=== PATIENT | female | born 1935 | race Caucasian/White ===

== ENCOUNTER 2017-03-21 13:10 | Inpatient (IN) | payer OTHER ==
[~2017-03-21] VITALS: Ht 154.9 cm; Wt 45.1 kg
[~2017-03-21 13:10] MED LIST: ASPEC81 PO; CHOLTAB3 PO; FSMD/70 PO; SIMV10TA2 PO
[2017-03-21] MEDS ORDERED: SULF800T23 PO (13:19)
[2017-03-21] MEDS ORDERED: DONE10TA12 PO (13:19)
[2017-03-21] MEDS ORDERED: CEPH500C2 PO (13:19)
[2017-03-21] MEDS ORDERED: ESCI1TAB9 PO (13:19)
[2017-03-21] MEDS ORDERED: SODIUM CHLORIDE 0.9% 1000ML 500 ML IV ONE (13:32)
[2017-03-21] MEDS ORDERED: VANCOMYCIN 1GM/270ML NSS IV STA (13:32)
[2017-03-21] MEDS ORDERED: PIPERACILLIN/TAZOBACTAM 4.5 GM/100ML D5W IV STA (13:32)
[2017-03-21] MEDS ORDERED: LORAZEPAM 2 MG/ML 1 ML VIAL IV STA (13:32)
--- NOTE | 2017-03-21 13:54 | EMERGENCY ROOM VISIT NOTE ---
History Report prepared by Bryan: Titi Johnson Under the Supervision of: Dr. Dov Wilson M.D. First contact with patient: 13:24 Chief Complaint: FEVER Stated Complaint: AMS/CONFUSION History of Present Illness The patient is an 81 year old female who presents to the Emergency Room with complaints of a constant fever and confusion starting this morning. Per the patient's daughter, the patient is finishing Bactrim and the second course of Keflex for a leg infection, and she states that they are currently looking better than usual. She states that she has never had any blood clots in the past. The patient denies any congestion, vomiting, cough, diarrhea, or urinary symptoms. Additionally, the patient has been weak all over. The patient has not taken any medications for her fever this morning. Source of History: patient Onset: this morning Position: other (global) Quality: other (fever) Timing: constant Associated Symptoms: No cough, No vomiting, No diarrhea, No urinary symptoms Review of Systems See HPI for pertinent positives & negatives. A total of 10 systems reviewed and were otherwise negative. Past Medical & Surgical Medical Problems: (1) Cellulitis, leg Family History Cancer Social History Smoking Status: Never Smoker Marital Status: Housing Status: lives alone Occupation Status: retired Current/Historical Medications Scheduled Cephalexin Monohydrate (Keflex), 1 CAP PO TID Donepezil Hydrochloride (Aricept), 10 MG PO DAILY Escitalopram Oxalate (Lexapro), 10 MG PO DAILY Sulfa/Trimethoprim (Bactrim Ds 800MG/160MG), 1 TAB PO BID Allergies Coded Allergies: No Known Allergies (Unverified , 05/23/10) Physical Exam Vital Signs Date Time Temp Pulse Resp B/P (MAP) Pulse Ox O2 Delivery O2 Flow Rate FiO2 03/21/17 16:00 37.5 86 24 97/76 97 Nasal Cannula 2.0 03/21/17 15:30 88 24 97/76 95 Room Air 03/21/17 14:23 117/46 03/21/17 14:20 93 14 03/21/17 14:15 87 33 03/21/17 14:10 91 27 03/21/17 14:05 95 32 03/21/17 14:00 87 27 03/21/17 13:55 88 20 03/21/17 13:53 88 03/21/17 13:53 134/73 03/21/17 13:25 96 Room Air 03/21/17 13:21 37.5 88 20 140/79 97 Room Air Physical Exam GENERAL: Patient is in no acute distress. HEENT: No acute trauma, normocephalic atraumatic, mucous membranes moist, no nasal congestion, no scleral icterus. NECK: No stridor, no adenopathy, no meningismus, trachea is midline. LUNGS: Clear to auscultation bilaterally, no wheeze, no rhonchi, breath sounds equal. HEART: Without murmurs gallops or rubs, regular rate and rhythm. ABDOMEN: Soft, nontender, bowel sounds positive, no hernias, no peritonitis. EXTREMITIES: Right greater than left edema bilaterally, erythema, and some clear drainage to both lower extremities. NEUROLOGIC: Confusion noted. Poor historian. Awake. No focal motor deficits. SKIN: No rash, no jaundice, no diaphoresis. Medical Decision & Procedures ER Provider Diagnostic Interpretation: Radiology results as stated below per my review and radiologist interpretation: ULTRASOUND VENOUS DOPPLER LWR EXT BILA CLINICAL HISTORY: Bilateral leg swelling COMPARISON STUDY: No previous studies for comparison. FINDINGS: Real-time and color flow Doppler imaging were performed. Flow was seen within the femoral, popliteal and calf veins with no intraluminal thrombus demonstrated. The saphenous vein is patent. Note, the study was difficult from a technical standpoint given limited patient cooperation. IMPRESSION: No evidence of lower extremity DVT. Electronically signed by: Buzz Gillette M.D. 03/21/2017 3:14 PM Dictated Date/Time: 03/21/2017 3:[address] HEAD WITHOUT CONTRAST (CT) CLINICAL HISTORY: confusion COMPARISON STUDY: MRI the brain dated 07/13/2010 TECHNIQUE: Axial CT of the brain is performed from the vertex to the skull base. IV contrast was not administered for this examination. A dose lowering technique was utilized adhering to the principles of ALARA. CT DOSE: 537.48 mGy.cm FINDINGS: No intra or extra-axial mass lesions are visualized. There is no CT evidence of acute cortical infarction. There is no evidence of midline shift. There is no acute hemorrhage. No calvarial fractures are visualized. There are patchy white matter hypodensities likely on a small vessel basis. 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 03/21/2017 3:13 PM Dictated Date/Time: 03/21/2017 3:12 PM CHEST ONE VIEW PORTABLE CLINICAL HISTORY: Sepsis COMPARISON STUDY: 05/23/2010 FINDINGS: The heart is borderline enlarged. There is mild interstitial thickening. There is no lobar consolidation. There are no significant pleural effusions.[ IMPRESSION: Mild interstitial thickening a finding which may be accentuated by suboptimal inspiration. No evidence of lobar consolidation Electronically signed by: Buzz Gillette M.D. 03/21/2017 2:08 PM Dictated Date/Time: 03/21/2017 2:07 PM Laboratory Results 03/21/17 13:49 Red Blood Count 4.57, Mean Corpuscular Volume 80.1, Mean Corpuscular Hemoglobin 26.0, Mean Corpuscular Hemoglobin Concent 32.5, Mean Platelet Volume 8.7, Neutrophils (%) (Auto) 90.9, Lymphocytes (%) (Auto) 5.3, Monocytes (%) (Auto) 3.1, Eosinophils (%) (Auto) 0.0, Basophils (%) (Auto) 0.4, Neutrophils # (Auto) 8.55, Lymphocytes # (Auto) 0.50, Monocytes # (Auto) 0.29, Eosinophils # (Auto) 0.00, Basophils # (Auto) 0.04 03/21/17 13:49 Test 03/21/17 13:49 03/21/17 13:55 03/21/17 14:10 White Blood Count 9.41 K/uL (4.8-10.8) Red Blood Count 4.57 M/uL (4.2-5.4) Hemoglobin 11.9 g/dL (12.0-16.0) Hematocrit 36.6 % (37-47) Mean Corpuscular Volume 80.1 fL (80-100) Mean Corpuscular Hemoglobin 26.0 pg (25-34) Mean Corpuscular Hemoglobin Concent 32.5 g/dl (32-36) Platelet Count 373 K/uL (130-400) Mean Platelet Volume 8.7 fL (7.4-10.4) Neutrophils (%) (Auto) 90.9 % Lymphocytes (%) (Auto) 5.3 % Monocytes (%) (Auto) 3.1 % Eosinophils (%) (Auto) 0.0 % Basophils (%) (Auto) 0.4 % Neutrophils # (Auto) 8.55 K/uL (1.4-6.5) Lymphocytes # (Auto) 0.50 K/uL (1.2-3.4) Monocytes # (Auto) 0.29 K/uL (0.11-0.59) Eosinophils # (Auto) 0.00 K/uL (0-0.5) Basophils # (Auto) 0.04 K/uL (0-0.2) RDW Standard Deviation 45.2 fL (36.4-46.3) RDW Coefficient of Variation 15.5 % (11.5-14.5) Immature Granulocyte % (Auto) 0.3 % Immature Granulocyte # (Auto) 0.03 K/uL (0.00-0.02) Prothrombin Time 12.0 SECONDS (9.0-12.0) Prothromb Time International Ratio 1.1 (0.9-1.1) Activated Partial Thromboplast Time 32.7 SECONDS (21.0-31.0) Partial Thromboplastin Ratio 1.3 Anion Gap 10.0 mmol/L (3-11) Est Creatinine Clear Calc Drug Dose 36.3 ml/min Estimated GFR () 74.0 Estimated GFR (Non- 63.8 BUN/Creatinine Ratio 17.6 (10-20) Calcium Level 9.0 mg/dl (8.5-10.1) Magnesium Level 1.7 mg/dl (1.8-2.4) Total Bilirubin 0.5 mg/dl (0.2-1) Aspartate Amino Transf (AST/SGOT) 28 U/L (15-37) Alanine Aminotransferase (ALT/SGPT) 21 U/L (12-78) Alkaline Phosphatase 116 U/L (45-117) Total Protein 7.5 gm/dl (6.4-8.2) Albumin 2.9 gm/dl (3.4-5.0) Globulin 4.6 gm/dl (2.5-4.0) Albumin/Globulin Ratio 0.6 (0.9-2) Thyroid Stimulating Hormone (TSH) 0.404 uIu/ml (0.300-4.500) Bedside Lactic Acid Venous 1.18 mmol/L (0.90-1.70) Urine Color DK YELLOW Urine Appearance CLEAR (CLEAR) Urine pH 6.0 (4.5-7.5) Urine Specific [place] 1.026 (1.000-1.030) Urine Protein NEG (NEG) Urine Glucose (UA) NEG (NEG) Urine Ketones 1+ (NEG) Urine Occult Blood NEG (NEG) Urine Nitrite NEG (NEG) Urine Bilirubin NEG (NEG) Urine Urobilinogen NEG (NEG) Urine Leukocyte Esterase NEG (NEG) Urine WBC (Auto) 0 /hpf (0-5) Urine RBC (Auto) 0-4 /hpf (0-4) Urine Hyaline Casts (Auto) 1-5 /lpf (0-5) Urine Epithelial Cells (Auto) 0-5 /lpf (0-5) Urine Bacteria (Auto) NEG (NEG) Laboratory results reviewed by me. Medications Administered Medications (Trade) Dose Ordered Sig/Ryan Route Start Time Stop Time Status Last Admin Dose Admin Sodium Chloride 500 ml @ 999 mls/hr Q31M ONCE IV 03/21/17 13:32 03/21/17 14:02 DC 03/21/17 13:32 999 MLS/HR Piperacillin Sod/ Tazobactam Sod (Zosyn Iv) 4.5 gm ONE STAT IV 03/21/17 13:32 03/21/17 13:35 DC 03/21/17 14:20 4.5 GM Vancomycin HCl (Vancomycin 1gm/ 270ml Nss) 1 gm ONE STAT IV 03/21/17 13:32 03/21/17 13:35 DC 03/21/17 14:20 1 GM Lorazepam (Ativan Inj) 0.5 mg NOW STAT IV 03/21/17 13:32 03/21/17 13:35 DC 03/21/17 14:20 0.5 MG ECG Indication: other (fever) Rate (beats per minute): 88 Rhythm: normal sinus Findings: nonspecific-ST abn, no acute ischemic change, no ectopy ED Course 1324: The patient was evaluated in room B11. A complete history and physical exam was performed. 1332: Ativan 0.5mg IV, Vancomycin 1gm/ 270ml NSS 1gm IV, Zosyn 4.5gm IV, Sodium Chloride 500 ml @ 999 mls/hr IV 1531: I reevaluated the patient, and she was asleep. I talked to her daughter, and she was agreeable to the treatment plan. 1540: Discussed the patient's case with Dr. Fajardo. The patient will be evaluated for further management. Medical Decision differential diagnoses include: sepsis, bacteremia, failed outpatient treatment , cellulitis, UTI, pneumonia, dehydration, electrolyte imbalance, stroke, medication reaction. There is no leukocytosis or concerning anemia. No significant electrolyte abnormality, kidney failure or hepatitis. Lactic acid level is not elevated making sepsis less likely. The patient appears to be in a euthyroid state. Chest x-ray does not show pneumonia or CHF. Urinalysis does not show infection. Blood cultures are pending. Lower extremity ultrasound does not show any evidence for DVT. Brain CT shows no acute bleed or mass effect. The patient presents with confusion and change in mental status. She developed a fever today despite being on Keflex and Bactrim for cellulitis. Mental status change was also just today. The patient received IV Zosyn and IV vancomycin. She was given IV saline, she received IV Ativan. Given the failed outpatient treatment and worsening of her situation, admission/observation was felt warranted. I spoke to the patient and case management. The on-call hospitalist was consulted. Medication Reconcilliation Current Medication List: was personally reviewed by me Blood Pressure Screening Patient's blood pressure: Elevated blood pressure Blood pressure disposition: Elevated BP felt to be situational Consults Time Called: 1530 Consulting Physician: Dr. Fajardo Returned Call: 1540 Discussed the patient's case with Dr. Fajardo. The patient will be evaluated for further management. Impression Primary Impression: Failure of outpatient treatment Additional Impressions: Change in mental status Cellulitis Scribe Attestation The scribe's documentation has been prepared under my direction and personally reviewed by me in its entirety. I confirm that the note above accurately reflects all work, treatment, procedures, and medical decision making performed by me. Departure Information Dispostion Being Evaluated By Hospitalist Referrals No Doctor, Assigned (PCP) Patient Instructions My [facility] Problem Qualifiers
[2017-03-21 14:05] LABS: BASO % 0.4 %; BASO ABS # 0.04 K/uL (0-0.2); COMPLETE YES; HEMATOCRIT 36.6 % (37-47); IG% 0.3 %; LYMPH % 5.3 %; MEAN CELL VOLUME 80.1 fL (80-100); MEAN CORPUSCULAR HGB CONC 32.5 g/dl (32-36); MEAN PLATELET VOLUME 8.7 fL (7.4-10.4); MONO % 3.1 %; NEUT % 90.9 %; PLATELET COUNT 373 K/uL (130-400); RED BLOOD COUNT 4.57 M/uL (4.2-5.4); WHITE BLOOD COUNT 9.41 K/uL (4.8-10.8)
--- NOTE | 2017-03-21 14:09 | DIAGNOSTIC IMAGING REPORT ---
CHEST ONE VIEW PORTABLE CLINICAL HISTORY: Sepsis COMPARISON STUDY: 05/23/2010 FINDINGS: The heart is borderline enlarged. There is mild interstitial thickening. There is no lobar consolidation. There are no significant pleural effusions.[ IMPRESSION: Mild interstitial thickening a finding which may be accentuated by suboptimal inspiration. No evidence of lobar consolidation Electronically signed by: Buzz Gillette M.D. 03/21/2017 2:08 PM Dictated Date/Time: 03/21/2017 2:07 PM
[2017-03-21 14:16] LABS: INR 1.1 (0.9-1.1); PARTIAL THROMBOPLASTIN RATIO 1.3
[2017-03-21 14:24] LABS: BUN/CREATININE RATIO 17.6 (10-20); CREATININE 0.85 mg/dl (0.60-1.20); MAGNESIUM 1.7 mg/dl (1.8-2.4)
[2017-03-21 14:34] LABS: URINE APPEARANCE CLEAR (CLEAR); URINE BILIRUBIN NEG (NEG); URINE COLOR DK YELLOW; URINE EPITHELIAL CELL AUTO 0-5 /lpf (0-5); URINE NITRITE NEG (NEG); URINE SPECIFIC GRAVITY 1.026 (1.000-1.030); UROBILINOGEN NEG (NEG); ZZURINE CULT IF INDIC CATH NO
[2017-03-21 14:34] LABS: ALB/GLOB RATIO 0.6 (0.9-2); THYROID STIMULATING HORMONE 0.404 uIu/ml (0.300-4.500)
[2017-03-21 14:36] LABS: MANUAL MICROSCOPIC REQUIRED? NO; REVIEW REQ? NO
--- NOTE | 2017-03-21 15:14 | DIAGNOSTIC IMAGING REPORT ---
CT HEAD WITHOUT CONTRAST (CT) CLINICAL HISTORY: confusion COMPARISON STUDY: MRI the brain dated 07/13/2010 TECHNIQUE: Axial CT of the brain is performed from the vertex to the skull base. IV contrast was not administered for this examination. A dose lowering technique was utilized adhering to the principles of ALARA. CT DOSE: 537.48 mGy.cm FINDINGS: No intra or extra-axial mass lesions are visualized. There is no CT evidence of acute cortical infarction. There is no evidence of midline shift. There is no acute hemorrhage. No calvarial fractures are visualized. There are patchy white matter hypodensities likely on a small vessel basis. 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 03/21/2017 3:13 PM Dictated Date/Time: 03/21/2017 3:12 PM
--- NOTE | 2017-03-21 15:15 | DIAGNOSTIC IMAGING REPORT ---
ULTRASOUND VENOUS DOPPLER LWR EXT BILA CLINICAL HISTORY: Bilateral leg swelling COMPARISON STUDY: No previous studies for comparison. FINDINGS: Real-time and color flow Doppler imaging were performed. Flow was seen within the femoral, popliteal and calf veins with no intraluminal thrombus demonstrated. The saphenous vein is patent. Note, the study was difficult from a technical standpoint given limited patient cooperation. IMPRESSION: No evidence of lower extremity DVT. Electronically signed by: Buzz Gillette M.D. 03/21/2017 3:14 PM Dictated Date/Time: 03/21/2017 3:13 PM
[2017-03-21 16:00] VITALS: BP 97/76; PULSE 86; TEMP 37.5; O2SAT 97; Ht 154.9 cm; Wt 45.1 kg
[2017-03-21] MEDS ORDERED: ACETAMINOPHEN 325 MG TAB PO PRN (16:30)
[2017-03-21] MEDS ORDERED: MAGNESIUM HYDROXIDE SUSP 30 ML UDC PO PRN (16:30)
[2017-03-21] MEDS ORDERED: ONDANSETRON INJ 2 MG/ML 2 ML VIAL IV PRN (16:30)
[2017-03-21] MEDS ORDERED: POLYETHYLENE (MIRALAX) 17 GM PACK PO PRN (16:30)
[2017-03-21] MEDS ORDERED: ALUMINUM/MAGNESIUM/SIMETH (MAALOX MAX) 30 ML UDC PO PRN (16:30)
--- NOTE | 2017-03-21 16:46 | History and Physical ---
History & Physical Date & Time of Service: Mar 21, 2017 at 16:24 Chief Complaint: Ams/Confusion Primary Care Physician: Neftali Hammond M.D. History of Present Illness Source: family (Daughter - Melissa) Ms. Bradley is an 81 y/o female with PMHx of Senile Dementia of Alzheimer's Type and Anxiety who presents to the ED due to fever and AMS starting this AM. History obtained from the daughter as patient is currently asleep after receiving Ativan. Patient is presented to PCP on 03/09 for bilateral lower extremity edema and erythema and was placed on Keflex. On follow-up on 03/15, she was started on Bactrim and another course of Keflex initiated. Daughter reports she is a couple days shy of completing this course. Daughter feels that her lower extremities are improving. She has open wounds on both feet that are healing. Her right lower extremity is more edematous compared to the left. Daughter states that the patient was feeling well prior to this morning. Daughter noted a fever of 100F and increased confusion from her baseline. Baseline mentation has underlying dementia and agitation. Daughter states patient is ambulatory and able to converse. Noted generalized weakness impacting her baseline ambulation. Daughter denies focal neurological deficits or slurred speech. Of note, daughter states on 03/15 patient's Lexapro was increased from 5 mg to 10 mg but reports she tolerated this increase well. In the ED, she is afebrile and without leukocytosis. Lactic acid 1.18. Hyponatremic at 130. Head CT negative for acute findings. CXR without lobar consolidation. UA is unremarkable. Bilateral Dopplers without evidence of DVT. Patient was initially mildly hypertensive but currently hypotensive. She will be admitted to telemetry for further evaluation and care. Family History Cancer Diabetes mellitus Social History Smoking Status: Never Smoker Smokeless Tobacco Use: No Alcohol Use: none Drug Use: none Marital Status: Housing status: lives alone Occupational Status: retired Immunizations History of Influenza Vaccine: Yes Influenza Vaccine Date: Apr 23, 2010 History of Tetanus Vaccine?: Unknown History of Pneumococcal: Yes Pneumococcal Date: Apr 23, 2010 History of Hepatitis B Vaccine: No Multi-Drug Resistant Organisms History of MDRO: No Allergies Coded Allergies: No Known Allergies (Unverified , 05/23/10) Home Medications Scheduled Cephalexin Monohydrate (Keflex), 1 CAP PO TID Donepezil Hydrochloride (Aricept), 10 MG PO DAILY Escitalopram Oxalate (Lexapro), 10 MG PO DAILY Sulfa/Trimethoprim (Bactrim Ds 800MG/160MG), 1 TAB PO BID Review of Systems Unable to obtain ROS due to sedation from Ativan. Physical Exam Vital Signs Date Time Temp Pulse Resp B/P (MAP) Pulse Ox O2 Delivery O2 Flow Rate FiO2 03/21/17 16:00 37.5 86 24 97/76 97 Nasal Cannula 2.0 03/21/17 15:30 88 24 97/76 95 Room Air 03/21/17 14:23 117/46 03/21/17 14:20 93 14 03/21/17 14:15 87 33 03/21/17 14:10 91 27 03/21/17 14:05 95 32 03/21/17 14:00 87 27 03/21/17 13:55 88 20 03/21/17 13:53 88 03/21/17 13:53 134/73 03/21/17 13:25 96 Room Air 03/21/17 13:21 37.5 88 20 140/79 97 Room Air General Appearance: WD/WN, no apparent distress (sleeping/snoring), + thin, + pertinent finding (shivering) Head: normocephalic, atraumatic Neck: supple, no JVD, trachea midline Respiratory/Chest: lungs clear, normal breath sounds, no respiratory distress, no accessory muscle use Cardiovascular: regular rate, rhythm, no gallop, no murmur Abdomen/GI: normal bowel sounds, non tender, soft Extremities/Musculoskelatal: + pertinent finding (healing superficial open wounds of bilateral dorsum of feet; bilateral legs with minimal erythema; RLE 2 + pitting edema and LLE 1+ pitting edema; RLE warm to touch; capillary refill adequate with mild delay) Neurologic/Psych: + pertinent finding (asleep) Diagnostics Laboratory Results Results Past 24 Hours Test 03/21/17 13:49 03/21/17 13:55 03/21/17 14:10 Range/Units White Blood Count 9.41 4.8-10.8 K/uL Red Blood Count 4.57 4.2-5.4 M/uL Hemoglobin 11.9 12.0-16.0 g/dL Hematocrit 36.6 37-47 % Mean Corpuscular Volume 80.1 80-100 fL Mean Corpuscular Hemoglobin 26.0 25-34 pg Mean Corpuscular Hemoglobin Concent 32.5 32-36 g/dl Platelet Count 373 130-400 K/uL Mean Platelet Volume 8.7 7.4-10.4 fL Neutrophils (%) (Auto) 90.9 % Lymphocytes (%) (Auto) 5.3 % Monocytes (%) (Auto) 3.1 % Eosinophils (%) (Auto) 0.0 % Basophils (%) (Auto) 0.4 % Neutrophils # (Auto) 8.55 1.4-6.5 K/uL Lymphocytes # (Auto) 0.50 1.2-3.4 K/uL Monocytes # (Auto) 0.29 0.11-0.59 K/uL Eosinophils # (Auto) 0.00 0-0.5 K/uL Basophils # (Auto) 0.04 0-0.2 K/uL RDW Standard Deviation 45.2 36.4-46.3 fL RDW Coefficient of Variation 15.5 11.5-14.5 % Immature Granulocyte % (Auto) 0.3 % Immature Granulocyte # (Auto) 0.03 0.00-0.02 K/uL Prothrombin Time 12.0 9.0-12.0 SECONDS Prothromb Time International Ratio 1.1 0.9-1.1 Activated Partial Thromboplast Time 32.7 21.0-31.0 SECONDS Partial Thromboplastin Ratio 1.3 Sodium Level 130 136-145 mmol/L Potassium Level 4.0 3.5-5.1 mmol/L Chloride Level 95 98-107 mmol/L Carbon Dioxide Level 25 21-32 mmol/L Anion Gap 10.0 3-11 mmol/L Blood Urea Nitrogen 15 7-18 mg/dl Creatinine 0.85 0.60-1.20 mg/dl Est Creatinine Clear Calc Drug Dose 36.3 ml/min Estimated GFR () 74.0 Estimated GFR (Non- 63.8 BUN/Creatinine Ratio 17.6 10-20 Random Glucose 95 70-99 mg/dl Calcium Level 9.0 8.5-10.1 mg/dl Magnesium Level 1.7 1.8-2.4 mg/dl Total Bilirubin 0.5 0.2-1 mg/dl Aspartate Amino Transf (AST/SGOT) 28 15-37 U/L Alanine Aminotransferase (ALT/SGPT) 21 12-78 U/L Alkaline Phosphatase 116 45-117 U/L Total Protein 7.5 6.4-8.2 gm/dl Albumin 2.9 3.4-5.0 gm/dl Globulin 4.6 2.5-4.0 gm/dl Albumin/Globulin Ratio 0.6 0.9-2 Thyroid Stimulating Hormone (TSH) 0.404 0.300-4.500 uIu/ml Bedside Lactic Acid Venous 1.18 0.90-1.70 mmol/L Urine Color DK YELLOW Urine Appearance CLEAR CLEAR Urine pH 6.0 4.5-7.5 Urine Specific [place] 1.026 1.000-1.030 Urine Protein NEG NEG Urine Glucose (UA) NEG NEG Urine Ketones 1+ NEG Urine Occult Blood NEG NEG Urine Nitrite NEG NEG Urine Bilirubin NEG NEG Urine Urobilinogen NEG NEG Urine Leukocyte Esterase NEG NEG Urine WBC (Auto) 0 0-5 /hpf Urine RBC (Auto) 0-4 0-4 /hpf Urine Hyaline Casts (Auto) 1-5 0-5 /lpf Urine Epithelial Cells (Auto) 0-5 0-5 /lpf Urine Bacteria (Auto) NEG NEG Microbiology Results 03/21/17 Blood Culture, Received Pending 03/21/17 Blood Culture, Received Pending Diagnostic Radiology ULTRASOUND VENOUS DOPPLER LWR EXT BILA FINDINGS: Real-time and color flow Doppler imaging were performed. Flow was seen within the femoral, popliteal and calf veins with no intraluminal thrombus demonstrated. The saphenous vein is patent. Note, the study was difficult from a technical standpoint given limited patient cooperation. IMPRESSION: No evidence of lower extremity DVT. CT HEAD WITHOUT CONTRAST (CT) FINDINGS: No intra or extra-axial mass lesions are visualized. There is no CT evidence of acute cortical infarction. There is no evidence of midline shift. There is no acute hemorrhage. No calvarial fractures are visualized. There are patchy white matter hypodensities likely on a small vessel basis. 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 There is mild interstitial thickening. There is no lobar consolidation. There are no significant pleural effusions.[ IMPRESSION: Mild interstitial thickening a finding which may be accentuated by suboptimal inspiration. No evidence of lobar consolidation EKG Poor data quality, interpretation may be adversely affected Normal sinus rhythm Normal ECG When compared with ECG of 23-MAY-2010 11:54, ST now depressed in Anterior leads Impression Assessment and Plan Ms. Bradley is an 81 y/o female with PMHx of Senile Dementia of Alzheimer's Type and Anxiety who presents to the ED due to fever and AMS starting this AM. Placed on Keflex x 2 courses and Bactrim x 1 course for bilateral lower extremity cellulitis. Bilateral Lower Extremity Cellulitis: - On antibiotics since 03/09 with noted improvement but not at baseline with noted increased confusion from baseline - R worse than L - Zosyn 3.375 mg IV Q8H and Vancomycin - NSS at 80 mL/hr Hyponatremia: - Continue gentle hydration with NSS at 80 mL/hr - may need to bolus 500 cc if necessary for hypotension - Monitor BMP SDAT: - Donepezil 10 mg daily and Lexapro 10 mg daily (increased on 03/15 from 5 mg) - Will avoid further Ativan at this time - however can do low dose if patient becomes extremely agitated DVT Prophylaxis: Heparin 5000 units SC BID Code Status: DO NOT RESUSCITATE - Daughter states this was discussed by patient to her and son in the past but denies living will or documentation -- Daughter and son are POA Disposition: - Telemetry due to hypotension - if stable overnight can transfer to Med/Surg - Lives alone with caregivers and daughter and son visits - is ambulatory without assistive devices Attending Addendum: I have physically seen and examined this patient, have directed the physician assistants medical activities, and agree with the H&P as noted above with the following exceptions as noted. The patient presents to the emergency department with complaint of fever and altered mental status more significant than her SDAT that began the a.m. prior to arrival. The patient is normocephalic and atraumatic, appears thin , lying in bed , resting comfortably, and in no acute distress. HEENT--PERRL, EOMI, mucous membranes and oropharynx dry. Neck--supple, no JVD or bruits, thyroid normal, trachea midline, no adenopathy. Heart--normal S1 and S2, no extra beats, no murmurs, rubs or gallops. Lungs--clear bilaterally with good air movement, no respiratory distress, no accessory muscle use. Abdomen--normal bowel sounds and soft, nontender and nondistended, no hernias or masses, no organomegaly. Extremities/dermatologic--right lower extremity with 2+ pitting edema, left lower extremity 1+ pitting edema, both warm to touch right worse than left. There are a number of healing superficial open wounds of the dorsum of the feet bilaterally. Neurologic--cranial nerves II through XII grossly intact, motor and sensory examination normal. Rheumatologic--moves all extremities Psychiatric--asleep. Assessment and Plan: 1. Bilateral lower extremity cellulitis-- Placed on vancomycin IV and Zosyn 3.375 mg IV every 8 hours. Normal saline at 80 ML's per hour. 2. Hyponatremia--add serum and urine osmolality. Normal saline at 80 ML's per hour, and bolus if low blood pressure. Serial BMP and magnesium levels. 3. SDAT--continue omeprazole and Lexapro as per outpatient. Level of Care Telemetry Advanced Directives Existing Advance Directive: Yes Existing Living Will: Yes Existing Power of Housekeeping Assistant: Yes Resuscitation Status DO NOT RESUSCITATE VTE Prophylaxis VTE Risk Assessment Done? Y/N: Yes Risk Level: Moderate Given or contraindicated: Unfractionated heparin SQ, SCD's Social Service Consult >80 yr.& Lives Alone
[2017-03-21] MEDS: SODIUM CHLORIDE 0.9% 1000ML 1,000 ML IV SCH (19:59)
[2017-03-21 20:20] VITALS: O2SAT 94
[2017-03-21] MEDS ORDERED: PIPERACILL/TAZOBAC CONSULT ACTIVE PRN (20:45)
[2017-03-21] MEDS ORDERED: VANCOMYCIN CONSULT ACTIVE PRN (20:45)
[2017-03-21 21:08] VITALS: BP 135/71; PULSE 87; TEMP 39; O2SAT 93
[2017-03-21] MEDS: PIPERACILL/TAZOBAC IV 3.375 GM in DEXTROSE 5% 100ML 100 ML IV SCH (21:12)
[2017-03-21] MEDS: HEPARIN SOD 5000 UNIT/0.5 ML CARP SQ SCH (22:21)
[2017-03-21 23:05] VITALS: BP 121/67; PULSE 97; TEMP 37.9; O2SAT 93
[2017-03-22] VITALS (10 sets, daily range): BP systolic 110–128; BP diastolic 60–74; PULSE 56–103; TEMP 36.4–38.2; O2SAT 94–100
[2017-03-22] MEDS: SODIUM CHLORIDE 0.9% 1000ML 1,000 ML IV SCH ×2 (04:31→17:45)
[2017-03-22] MEDS: PIPERACILL/TAZOBAC IV 3.375 GM in DEXTROSE 5% 100ML 100 ML IV SCH ×3 (04:31→20:47)
[2017-03-22 05:53] LABS: HEMATOCRIT 34.1 % (37-47); MEAN CELL VOLUME 79.9 fL (80-100); MEAN CORPUSCULAR HEMOGLOBIN 25.1 pg (25-34); MEAN CORPUSCULAR HGB CONC 31.4 g/dl (32-36); MEAN PLATELET VOLUME 8.9 fL (7.4-10.4); PLATELET COUNT 297 K/uL (130-400); RED BLOOD COUNT 4.27 M/uL (4.2-5.4)
[2017-03-22 06:30] LABS: BUN/CREATININE RATIO 22.2 (10-20); CALCIUM 7.9 mg/dl (8.5-10.1); CREATININE 0.81 mg/dl (0.60-1.20); POTASSIUM 3.4 mmol/L (3.5-5.1)
--- NOTE | 2017-03-22 08:46 | Pharmacy Progress Note ---
Pharmacy Abx Initial Consult Date of Service Mar 22, 2017. Pharmacy Dosing Scope Date of Consult: 03/21/17 Pharmacy is consulted to initiate Vancomycin/Zosyn IV dosing therapy, order appropriate labs and adjust drug dose/frequency. Subjective The patient is a 81 year old female admitted on Mar 21, 2017 at 16:22 for the treatment of B/L leg cellulitis. Objective Height (Feet): 5 Height (Inches): 1.00 Weight (Kilograms): 45.100 Vital Signs (Past 12Hrs) Vital Signs Past 12 Hours Date Time Temp Pulse Resp B/P (MAP) Pulse Ox O2 Delivery O2 Flow Rate FiO2 03/22/17 07:25 37.7 103 20 128/63 (84) 94 Room Air 03/22/17 07:01 37.7 03/22/17 04:05 Room Air 03/22/17 02:55 38.2 91 18 122/71 (88) 94 Room Air 03/22/17 00:05 Room Air 03/21/17 23:05 37.9 97 24 121/67 (85) 93 Room Air 03/21/17 21:08 39.0 87 18 135/71 (92) 93 Room Air Lab Results (24Hrs) Laboratory Tests (24 Hours) Test 03/21/17 13:49 03/22/17 05:17 White Blood Count 9.41 K/uL (4.8-10.8) 7.50 K/uL (4.8-10.8) Red Blood Count 4.57 M/uL (4.2-5.4) Hemoglobin 11.9 g/dL (12.0-16.0) L Hematocrit 36.6 % (37-47) L Mean Corpuscular Volume 80.1 fL (80-100) Mean Corpuscular Hemoglobin 26.0 pg (25-34) Mean Corpuscular Hemoglobin Concent 32.5 g/dl (32-36) Platelet Count 373 K/uL (130-400) Mean Platelet Volume 8.7 fL (7.4-10.4) Neutrophils (%) (Auto) 90.9 % Lymphocytes (%) (Auto) 5.3 % Monocytes (%) (Auto) 3.1 % Eosinophils (%) (Auto) 0.0 % Basophils (%) (Auto) 0.4 % Neutrophils # (Auto) 8.55 K/uL (1.4-6.5) H Lymphocytes # (Auto) 0.50 K/uL (1.2-3.4) L Monocytes # (Auto) 0.29 K/uL (0.11-0.59) Eosinophils # (Auto) 0.00 K/uL (0-0.5) Basophils # (Auto) 0.04 K/uL (0-0.2) Micro Results Date/Time Source Procedure Growth Status 03/21/17 13:49 Blood Blood Culture Pending Received 03/21/17 13:41 Blood Blood Culture Pending Received Risk Factors for Resistance * Antimicrobial use within the last 90 days: Keflex PO + Bactrim PO Assessment & Plan Assessment 81 year old female admitted yesterday for treatment of B/L leg cellulitis, initiated on Vancomycin/Zosyn IV. Pt recently failed two treatment courses of PO Keflex and one course of Bactrim PO. Blood cultures pending. Plan Vancomycin IV * Loading dose: 1000 mg (22 mg/kg) * Maintenance dose: 750 mg IV (16.5 mg/kg) every 24 hours * Goal trough level for cellulitis: ~15 mcg/mL * Trough level ordered for 03/24/17 @0930 prior to the 1000 dose. Piperacillin/tazobactam * 4.5 g bolus administered over 30 minutes, then 3.375 g IV extended infusion every 8 hours for CrCl greater than 20 mL/min Pharmacy will continue to follow and will adjust dose/frequency as necessary. Thank you.
[2017-03-22] MEDS: DONEPEZIL HCL 10 MG TAB PO SCH (09:00)
[2017-03-22] MEDS: ESCITALOPRAM OXALATE 10 MG TAB PO SCH (09:00)
[2017-03-22] MEDS: HEPARIN SOD 5000 UNIT/0.5 ML CARP SQ SCH ×2 (09:00→20:50)
[2017-03-22] MEDS: VANCOMYCIN INJ 750 MG in SODIUM CHLORIDE 0.9% 250ML 250 ML IV SCH (09:49)
--- NOTE | 2017-03-22 20:57 | Progress Note ---
Subjective Date of Service: Mar 22, 2017. Subjective Pt evaluation today including: conversation w/ patient, conversation w/ family , physical exam, chart review, lab review, review of studies Problem List Medical Problems: (1) Cellulitis Status: Acute (2) Change in mental status Status: Acute (3) Failure of outpatient treatment Status: Acute Review of Systems ROS is unobtainable as patient is lethargic Objective Vital Signs Date Time Temp Pulse Resp B/P (MAP) Pulse Ox O2 Delivery O2 Flow Rate FiO2 03/22/17 20:04 36.4 56 16 125/74 (91) 100 Room Air 03/22/17 16:00 96 Room Air 03/22/17 15:13 36.7 93 18 121/68 (85) 94 Room Air 03/22/17 12:00 95 Room Air 3.0 03/22/17 11:31 37.9 94 18 110/60 (77) 95 Room Air 03/22/17 08:00 94 Room Air 3.0 03/22/17 07:25 37.7 103 20 128/63 (84) 94 Room Air 03/22/17 07:01 37.7 03/22/17 04:05 Room Air 03/22/17 02:55 38.2 91 18 122/71 (88) 94 Room Air 03/22/17 00:05 Room Air 03/21/17 23:05 37.9 97 24 121/67 (85) 93 Room Air 03/21/17 21:08 39.0 87 18 135/71 (92) 93 Room Air Physical Exam General Appearance: WD/WN, no apparent distress Eyes: normal inspection, EOMI ENT: normal ENT inspection Neck: supple Respiratory/Chest: chest non-tender, lungs clear, normal breath sounds, no respiratory distress, no accessory muscle use Cardiovascular: regular rate, rhythm, no edema, no gallop, no JVD, no murmur Abdomen: normal bowel sounds, non tender, soft, no organomegaly Extremities: normal range of motion, non-tender, normal inspection, no pedal edema, no calf tenderness Neurologic/Psychiatric: + pertinent finding (patient lethargic but was able to follow simple command despite being partially combative. Discussed with patient 's son) Skin: normal color, warm/dry, no rash Laboratory Results Last 24 Hours Test 03/22/17 05:17 White Blood Count 7.50 K/uL Red Blood Count 4.27 M/uL Hemoglobin 10.7 g/dL Hematocrit 34.1 % Mean Corpuscular Volume 79.9 fL Mean Corpuscular Hemoglobin 25.1 pg Mean Corpuscular Hemoglobin Concent 31.4 g/dl RDW Standard Deviation 45.8 fL RDW Coefficient of Variation 15.7 % Platelet Count 297 K/uL Mean Platelet Volume 8.9 fL Sodium Level 132 mmol/L Potassium Level 3.4 mmol/L Chloride Level 100 mmol/L Carbon Dioxide Level 24 mmol/L Anion Gap 8.0 mmol/L Blood Urea Nitrogen 18 mg/dl Creatinine 0.81 mg/dl Est Creatinine Clear Calc Drug Dose 38.1 ml/min Estimated GFR () 78.4 Estimated GFR (Non- 67.6 BUN/Creatinine Ratio 22.2 Random Glucose 95 mg/dl Calcium Level 7.9 mg/dl Assessment and Plan 81-year-old female with past medical history of advanced Alzheimer and an anxiety presented to the ED with change in mental status and found to have cellulitis in her lower extremities. Metabolic encephalopathy Bilateral lower extremity cellulitis Hyponatremia Possible tinea pedis Borderline low blood pressure Hyponatremia likely nutritional Dehydration due to decreased oral intake Advanced dementia Plan continue Zosyn/Vanco Continue IV fluid hydration Continue home meds as appropriate Heparin for DVT prophylaxis We'll add Lactinex for C. difficile prophylaxis We'll add ketoconazole for treatment of tinea pedis
[2017-03-23] VITALS (9 sets, daily range): BP systolic 112–145; BP diastolic 62–79; PULSE 67–90; TEMP 36–37.1; O2SAT 90–92
[2017-03-23] MEDS: PIPERACILL/TAZOBAC IV 3.375 GM in DEXTROSE 5% 100ML 100 ML IV SCH (05:30)
[2017-03-23] MEDS: SODIUM CHLORIDE 0.9% 1000ML 1,000 ML IV SCH ×2 (05:30→18:08)
[2017-03-23 06:36] LABS: BASO % 0.5 %; BASO ABS # 0.04 K/uL (0-0.2); COMPLETE YES; EOS % 1.2 %; IG% 0.3 %; LYMPH % 15.5 %; LYMPH ABS # 1.15 K/uL (1.2-3.4); MEAN CELL VOLUME 78.8 fL (80-100); MEAN CORPUSCULAR HEMOGLOBIN 25.6 pg (25-34); MEAN CORPUSCULAR HGB CONC 32.5 g/dl (32-36); MEAN PLATELET VOLUME 8.8 fL (7.4-10.4); MONO % 7.4 %; NEUT % 75.1 %; PLATELET COUNT 230 K/uL (130-400); RED BLOOD COUNT 4.06 M/uL (4.2-5.4); WHITE BLOOD COUNT 7.43 K/uL (4.8-10.8)
[2017-03-23 07:14] LABS: ALB/GLOB RATIO 0.6 (0.9-2); BUN/CREATININE RATIO 23.9 (10-20); CALCIUM 7.4 mg/dl (8.5-10.1); CREATININE 0.61 mg/dl (0.60-1.20); MAGNESIUM 1.8 mg/dl (1.8-2.4); PHOSPHORUS 1.6 mg/dl (2.5-4.9); POTASSIUM 3.1 mmol/L (3.5-5.1)
[2017-03-23] MEDS: ESCITALOPRAM OXALATE 10 MG TAB PO SCH (08:51)
[2017-03-23] MEDS: DONEPEZIL HCL 10 MG TAB PO SCH (08:51)
[2017-03-23] MEDS: HEPARIN SOD 5000 UNIT/0.5 ML CARP SQ SCH ×2 (08:52→19:40)
[2017-03-23] MEDS: VANCOMYCIN INJ 750 MG in SODIUM CHLORIDE 0.9% 250ML 250 ML IV SCH (11:00)
[2017-03-23] MEDS ORDERED: NURSING DECISION MEDICATION ORDER SCH (11:15)
--- NOTE | 2017-03-23 12:37 | Progress Note ---
Subjective Date of Service: Mar 23, 2017. Subjective Pt evaluation today including: conversation w/ patient, physical exam, chart review, lab review, review of inpatient medication list Problem List Medical Problems: (1) Cellulitis Status: Acute (2) Change in mental status Status: Acute (3) Failure of outpatient treatment Status: Acute Review of Systems Review of systems is unobtainable in details but she is much more awake now and was able to deny any complaint or any pain Was not able to review all her system details as she is still slightly lethargic. Objective Vital Signs Date Time Temp Pulse Resp B/P (MAP) Pulse Ox O2 Delivery O2 Flow Rate FiO2 03/23/17 11:38 36.0 79 18 124/72 (89) 92 Room Air 03/23/17 08:00 90 Room Air 2.0 03/23/17 07:36 37.1 85 20 119/70 (86) 90 Nasal Cannula 2.0 03/23/17 05:43 36.7 89 18 119/72 (88) 91 2.0 03/23/17 04:00 Nasal Cannula 2.0 03/23/17 01:25 36.6 90 18 139/62 (87) 90 2.0 03/23/17 00:00 Nasal Cannula 2.0 03/22/17 20:04 36.4 56 16 125/74 (91) 100 Room Air 03/22/17 20:00 96 Room Air 03/22/17 16:00 96 Room Air 03/22/17 15:13 36.7 93 18 121/68 (85) 94 Room Air Physical Exam General Appearance: WD/WN, no apparent distress Eyes: normal inspection, EOMI ENT: normal ENT inspection, hearing grossly normal Neck: supple Respiratory/Chest: chest non-tender, lungs clear, normal breath sounds, no respiratory distress, no accessory muscle use Cardiovascular: regular rate, rhythm, no edema, no gallop, no JVD, no murmur Abdomen: normal bowel sounds, non tender, soft, no organomegaly Extremities: normal range of motion, non-tender, normal inspection, no pedal edema 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, no motor/sensory deficits, + pertinent finding (slightly lethargic but much more awake than yesterday and able to follow simple commands) Skin: normal color, warm/dry, + rash, + pertinent finding (significant cellulitis in both lower extremities) Laboratory Results Last 24 Hours Test 03/23/17 06:16 White Blood Count 7.43 K/uL Red Blood Count 4.06 M/uL Hemoglobin 10.4 g/dL Hematocrit 32.0 % Mean Corpuscular Volume 78.8 fL Mean Corpuscular Hemoglobin 25.6 pg Mean Corpuscular Hemoglobin Concent 32.5 g/dl Platelet Count 230 K/uL Mean Platelet Volume 8.8 fL Neutrophils (%) (Auto) 75.1 % Lymphocytes (%) (Auto) 15.5 % Monocytes (%) (Auto) 7.4 % Eosinophils (%) (Auto) 1.2 % Basophils (%) (Auto) 0.5 % Neutrophils # (Auto) 5.58 K/uL Lymphocytes # (Auto) 1.15 K/uL Monocytes # (Auto) 0.55 K/uL Eosinophils # (Auto) 0.09 K/uL Basophils # (Auto) 0.04 K/uL RDW Standard Deviation 45.1 fL RDW Coefficient of Variation 15.6 % Immature Granulocyte % (Auto) 0.3 % Immature Granulocyte # (Auto) 0.02 K/uL Sodium Level 135 mmol/L Potassium Level 3.1 mmol/L Chloride Level 103 mmol/L Carbon Dioxide Level 25 mmol/L Anion Gap 7.0 mmol/L Blood Urea Nitrogen 15 mg/dl Creatinine 0.61 mg/dl Est Creatinine Clear Calc Drug Dose 50.6 ml/min Estimated GFR () 97.8 Estimated GFR (Non- 84.4 BUN/Creatinine Ratio 23.9 Random Glucose 96 mg/dl Calcium Level 7.4 mg/dl Phosphorus Level 1.6 mg/dl Magnesium Level 1.8 mg/dl Total Bilirubin 0.5 mg/dl Aspartate Amino Transf (AST/SGOT) 63 U/L Alanine Aminotransferase (ALT/SGPT) 26 U/L Alkaline Phosphatase 76 U/L Total Protein 5.2 gm/dl Albumin 1.9 gm/dl Globulin 3.3 gm/dl Albumin/Globulin Ratio 0.6 Assessment and Plan 81-year-old female with past medical history of advanced Alzheimer and an anxiety presented to the ED with change in mental status and found to have cellulitis in her lower extremities. Metabolic encephalopathy, improved Bilateral lower extremity cellulitis Hyponatremia Possible tinea pedis Borderline low blood pressure Hyponatremia likely nutritional Dehydration due to decreased oral intake Advanced dementia Plan CT scan head is negative and mental status is significantly improved continue Vanco, ordered nasal swab for MRSA DC Zosyn Started on ceftriaxone 2 g IV daily, Streptococcus dose Continue Lactinex Continue ketoconazole for tinea pedis between toes Continue IV fluid hydration Continue home meds as appropriate Heparin for DVT prophylaxis
--- NOTE | 2017-03-23 12:41 | Clinical Documentation Query ---
CLINICAL DOCUMENTATION QUERY 81 y/o female with PMHx of Senile Dementia of Alzheimer's Type and Anxiety who presents to the ED due to fever and AMS starting this AM. Placed on Keflex x 2 courses and Bactrim x 1 course for bilateral lower extremity cellulitis. In your clinical opinion is this patient being managed for: ( x ) Pressure ulcer of left heel, stage 2, POA ( x ) Pressure ulcer of right buttock, unstageable, POA ( ) Not Agree ( ) Other explanation of clinical findings (Please Explain) ( ) Unable to determine (Please Define) ( ) Need to Discuss The medical record reflects the following clinical findings, treatment, and risk factors. Clinical Indicators: Patient seen by WOCN revealed in Intervention: Right medial buttocks, POA, Pressure Ulcer Deep Tissue Injuryj Left heel, POA, Pressure Ulcer, Deep Tissue Injury Left heel, Dark Fluid Filled Blister Treatment:Waffle boots, EHOB air mattress, wound consult Risk Factors:Age, immobility, dementia Stage 2 Pressure Injury: Partial-thickness skin loss with exposed dermis Partial-thickness loss of skin with exposed dermis. The wound bed is viable, pink or red, moist, and may also present as an intact or ruptured serum-filled blister. Adipose (fat) is not visible and deeper tissues are not visible. Granulation tissue, slough and eschar are not present. Reference:National Pressure Ulcer Advisory Panel (NPUAP) Please clarify and document your clinical opinion in the progress notes and discharge summary. Terms such as "probable", "suspected", "likely", "questionable", "possible", or "still to be ruled out" are acceptable. IF IN AGREEMENT, YOU MUST DOCUMENT ABOVE DIAGNOSTIC STATEMENT IN DAILY PROGRESS NOTES AND DISCHARGE SUMMARY. This document is not part of the patient's record. Thank You, Cinthya Wilson RN [phone]
[2017-03-23] MEDS: CEFTRIAXONE SOD INJ 2,000 MG in DEXTROSE 5% 50ML 50 ML IV SCH (13:25)
[2017-03-23] MEDS: POT PHOSPHATE MONOBASIC W/ SOD TAB PO SCH ×3 (13:25→19:39)
[2017-03-23] MEDS: LACTOBACILLUS ACIDOPHILUS 1 GM PACK PO SCH (16:44)
[2017-03-23] MEDS: KETOCONAZOLE 2% CR 15 GM TUBE EXT SCH (19:39)
[2017-03-23] MEDS: EUCERIN CR 120 GM JAR EXT SCH (19:39)
[2017-03-24] VITALS (11 sets, daily range): BP systolic 125–138; BP diastolic 60–84; PULSE 61–115; TEMP 36.3–36.5; O2SAT 83–95
[2017-03-24 05:44] LABS: HEMATOCRIT 35.3 % (37-47); MEAN CELL VOLUME 79.1 fL (80-100); MEAN CORPUSCULAR HEMOGLOBIN 26.2 pg (25-34); MEAN CORPUSCULAR HGB CONC 33.1 g/dl (32-36); MEAN PLATELET VOLUME 9.5 fL (7.4-10.4); PLATELET COUNT 254 K/uL (130-400); RED BLOOD COUNT 4.46 M/uL (4.2-5.4); WHITE BLOOD COUNT 7.97 K/uL (4.8-10.8)
[2017-03-24] MEDS: SODIUM CHLORIDE 0.9% 1000ML 1,000 ML IV SCH ×2 (06:17→18:50)
[2017-03-24 06:21] LABS: BUN/CREATININE RATIO 25.1 (10-20); CALCIUM 7.9 mg/dl (8.5-10.1); CREATININE 0.7 mg/dl (0.60-1.20); MAGNESIUM 1.6 mg/dl (1.8-2.4); POTASSIUM 2.9 mmol/L (3.5-5.1)
[2017-03-24 06:23] LABS: PHOSPHORUS 2.7 mg/dl (2.5-4.9)
[2017-03-24 06:45] LABS: BASO % 0.4 %; BASO ABS # 0.03 K/uL (0-0.2); COMPLETE YES; ECHINOCYTES 1+; EOS % 1.5 %; IG% 0.6 %; LYMPH % 18.6 %; LYMPH ABS # 1.48 K/uL (1.2-3.4); MONO % 9.3 %; NEUT % 69.6 %; OVALOCYTES 1+
[2017-03-24] MEDS ORDERED: POTASSIUM CHLORIDE 20 MEQ TABCR PO STA (08:09)
[2017-03-24] MEDS ORDERED: NURSING VERBAL MED ORDER ONE (08:15)
[2017-03-24] MEDS: POT PHOSPHATE MONOBASIC W/ SOD TAB PO SCH ×4 (08:25→20:11)
[2017-03-24] MEDS: POLYETHYLENE (MIRALAX) 17 GM PACK PO SCH (08:25)
[2017-03-24] MEDS: LACTOBACILLUS ACIDOPHILUS 1 GM PACK PO SCH ×3 (08:25→17:11)
[2017-03-24] MEDS: ESCITALOPRAM OXALATE 10 MG TAB PO SCH (08:25)
[2017-03-24] MEDS: KETOCONAZOLE 2% CR 15 GM TUBE EXT SCH ×2 (08:26→19:58)
[2017-03-24] MEDS: DONEPEZIL HCL 10 MG TAB PO SCH (08:26)
[2017-03-24] MEDS: EUCERIN CR 120 GM JAR EXT SCH ×2 (08:26→20:10)
[2017-03-24] MEDS: HEPARIN SOD 5000 UNIT/0.5 ML CARP SQ SCH ×2 (09:08→20:14)
[2017-03-24] MEDS ORDERED: VANCOMYCIN TROUGH SCH (09:30)
[2017-03-24] MEDS: VANCOMYCIN INJ 750 MG in SODIUM CHLORIDE 0.9% 250ML 250 ML IV SCH (10:17)
[2017-03-24] MEDS: CEFTRIAXONE SOD INJ 2,000 MG in DEXTROSE 5% 50ML 50 ML IV SCH (14:03)
--- NOTE | 2017-03-24 14:43 | Wound Consultation: Inpatient ---
Wound Consultation Date of Consultation: Mar 24, 2017. Attending Physician: Simon Munoz MD Reason for Consultation: Ulceration to the left heel and buttocks region History of Present Illness Patient was admitted 3 days ago for evaluation of fever and altered mental status. Patient has dementia and Alzheimer's. Patient the current time is unable to provide any adequate history. Further history of be deferred. The ulceration however on the heel was not noted to be present on admission. Family History Cancer Diabetes mellitus Social History Smoking Status: Never Smoker Smokeless Tobacco Use: No Alcohol Use: none Drug Use: none Marital Status: Housing Status: lives alone Occupation Status: retired Allergies Coded Allergies: No Known Allergies (Unverified , 05/23/10) Home Medications Scheduled Cephalexin Monohydrate (Keflex), 1 CAP PO TID Donepezil Hydrochloride (Aricept), 10 MG PO DAILY Escitalopram Oxalate (Lexapro), 10 MG PO DAILY Sulfa/Trimethoprim (Bactrim Ds 800MG/160MG), 1 TAB PO BID Inpatient Medications Current Inpatient Medications Medications (Trade) Dose Ordered Sig/Ryan Route Start Time Stop Time Status Last Admin Dose Admin Heparin Sodium (Porcine) (Heparin Sq 5000 Unit/0.5ml) 5,000 unit Q12 SQ 03/21/17 21:00 04/20/17 20:59 03/24/17 09:08 5,000 UNIT Sodium Chloride 1,000 ml @ 80 mls/hr [id number] IV 03/21/17 16:17 04/20/17 16:16 03/24/17 06:17 80 MLS/HR Acetaminophen (Tylenol Tab) 650 mg Q4H PRN PO 03/21/17 16:30 04/20/17 16:29 Al Hydrox/Mg Hydrox/Simethicone (Maalox Max Susp) 15 ml Q4H PRN PO 03/21/17 16:30 04/20/17 16:29 Magnesium Hydroxide (Milk Of Magnesia Susp) 30 ml Q12H PRN PO 03/21/17 16:30 04/20/17 16:29 Ondansetron HCl (Zofran Inj) 4 mg Q6H PRN IV 03/21/17 16:30 04/20/17 16:29 Polyethylene (Miralax Powder Packet) 17 gm DAILY PRN PO 03/21/17 16:30 04/20/17 16:29 Donepezil HCl (Aricept Tab) 10 mg DAILY PO 03/22/17 09:00 04/21/17 08:59 03/24/17 08:26 10 MG Escitalopram Oxalate (Lexapro Tab) 10 mg DAILY PO 03/22/17 09:00 04/21/17 08:59 03/24/17 08:25 10 MG Vancomycin HCl 750 mg/Sodium Chloride 265 ml @ 125 mls/hr DAILY@1000 IV 03/22/17 10:00 03/31/17 09:59 03/24/17 10:17 125 MLS/HR Vancomycin HCl (Consult) 1 ea UD PRN N/A 03/21/17 20:45 04/20/17 20:44 Multi-Ingredient Ointment (Eucerin Unscented Cr) 1 appln BID EXT 03/23/17 21:00 04/22/17 20:59 03/24/17 08:26 1 APPLN Ceftriaxone Sodium 2000 mg/ Dextrose 70 ml @ 100 mls/hr Q24H IV 03/23/17 14:00 04/02/17 13:59 03/24/17 14:03 100 MLS/HR Lactobacillus Acidophilus (Lactinex Granules Pack) 1 gm TIDM PO 03/23/17 17:00 04/22/17 16:59 03/24/17 12:48 1 GM Potassium/ Phosphorus/Sodium (Phospha 250 Neutral 155-852-130 Mg) 1 tab QID PO 03/23/17 13:00 03/26/17 13:00 03/24/17 12:47 1 TAB Polyethylene (Miralax Powder Packet) 17 gm DAILY PO 03/24/17 09:00 04/23/17 08:59 03/24/17 08:25 17 GM Ketoconazole (Nizoral 2% Crm) 1 appln BID EXT 03/23/17 21:00 04/02/17 20:59 03/24/17 08:26 1 APPLN Review of Systems Further review of systems were deferred at this time due to the patient's chronic mental status changes. Physical Exam Date Time Temp Pulse Resp B/P (MAP) Pulse Ox O2 Delivery O2 Flow Rate FiO2 03/24/17 12:12 36.3 66 16 131/83 (99) 95 Room Air 03/24/17 12:00 95 Room Air 03/24/17 08:00 93 Room Air 03/24/17 07:19 36.5 66 16 136/60 (85) 93 Room Air 03/24/17 05:00 93 Room Air 03/24/17 04:45 36.5 115 18 127/82 (97) 83 Room Air 03/24/17 04:00 Room Air 03/24/17 00:00 Room Air 03/23/17 23:35 36.9 67 16 145/79 (101) 90 Room Air 03/23/17 20:00 Room Air 03/23/17 19:13 36.4 67 16 112/68 (83) 92 Room Air 03/23/17 16:00 Room Air 03/23/17 15:31 36.6 75 20 118/75 (89) 92 Room Air General: The patient is lying in a hospital bed in no distress. Alert, cooperative and appropriate to all questions. HEENT: Pupils equal and reactive to light. Sclera clear, EOM intact. Neck: Supple, No JVD noted Chest: CTA in all chung. No deformity Heart: RRR without murmurs, S3, S4, thrills, rubs or heaves Back: There is a deep tissue injury with purpleish discoloration noted on the right buttocks. No open ulceration or active drainage noted no periwound erythema present Extremities: There is a fluctuant filled blister formation noted on the left heel measuring 5 x 4.6 x 0 cm. There is fluctuance present at this site. Once debridement there's underlying deep tissue injury measuring 3.7 x 4 x 0 cm. No periwound erythema noted. Neurological: Alert. No focal deficits. Laboratory Results Last 24 Hours Test 03/24/17 05:15 03/24/17 09:52 White Blood Count 7.97 K/uL Red Blood Count 4.46 M/uL Hemoglobin 11.7 g/dL Hematocrit 35.3 % Mean Corpuscular Volume 79.1 fL Mean Corpuscular Hemoglobin 26.2 pg Mean Corpuscular Hemoglobin Concent 33.1 g/dl Platelet Count 254 K/uL Mean Platelet Volume 9.5 fL Neutrophils (%) (Auto) 69.6 % Lymphocytes (%) (Auto) 18.6 % Monocytes (%) (Auto) 9.3 % Eosinophils (%) (Auto) 1.5 % Basophils (%) (Auto) 0.4 % Neutrophils # (Auto) 5.55 K/uL Lymphocytes # (Auto) 1.48 K/uL Monocytes # (Auto) 0.74 K/uL Eosinophils # (Auto) 0.12 K/uL Basophils # (Auto) 0.03 K/uL RDW Standard Deviation 45.5 fL RDW Coefficient of Variation 15.6 % Immature Granulocyte % (Auto) 0.6 % Immature Granulocyte # (Auto) 0.05 K/uL Ovalocytes 1+ Echinocytes 1+ Sodium Level 136 mmol/L Potassium Level 2.9 mmol/L Chloride Level 104 mmol/L Carbon Dioxide Level 24 mmol/L Anion Gap 8.0 mmol/L Blood Urea Nitrogen 18 mg/dl Creatinine 0.70 mg/dl Est Creatinine Clear Calc Drug Dose 44.1 ml/min Estimated GFR () 93.5 Estimated GFR (Non- 80.7 BUN/Creatinine Ratio 25.1 Random Glucose 97 mg/dl Calcium Level 7.9 mg/dl Phosphorus Level 2.7 mg/dl Magnesium Level 1.6 mg/dl Vancomycin Level Trough 6.8 mcg/ml Assessment & Plan Assessment: Unstageable pressure ulcer left heel Deep tissue injury right buttocks Plan: At this time the heel blister formation did require debridement. The area was deroofed with scisors and forceps. skin removed and a gelatinous material was removed with blunt dissection. No bleeding occurred. Patient tolerated the procedure well. The site of be dressed with Aquasol AG foam. The patient is currently on a low air loss mattress and additional waffle boots will be supplied. The patient will continue to be monitored during her hospitalization and followed up in the outpatient clinic if needed. Represented a non-excisional debridement of 23 cm.
--- NOTE | 2017-03-24 15:22 | Pharmacy Progress Note ---
Pharmacy Abx Dose Short Note Date of Service Mar 24, 2017. Assessment & Plan Assessment 81 year old female receiving vancomycin, rocephin for treatment of bilateral cellulitis Day # 4 of antimicrobial therapy. Plan Vancomycin * Trough level of 6.8 is subtherapeutic. * Change dose to 750 mg q14H * Goal trough level for cellulitis : 10 to 15 mcg/mL * Trough ordered for 03/26 @ 1530 Pharmacy will continue to follow and will adjust dose/frequency as necessary. Thank you.
--- NOTE | 2017-03-24 18:38 | Progress Note ---
Subjective Date of Service: Mar 24, 2017. Subjective Pt evaluation today including: conversation w/ patient, physical exam, chart review, lab review, review of inpatient medication list Problem List Medical Problems: (1) Cellulitis Status: Acute (2) Change in mental status Status: Acute (3) Failure of outpatient treatment Status: Acute Review of Systems Constitutional: No see HPI, No fever, No chills, No sweats, No weight loss, No weakness, No fatigue, No problem reported Eyes: No see HPI, No worsening of vision, No eye pain, No redness, No discharge , No diplopia, No problem reported ENT: No see HPI, No hearing loss, No unusual epistaxis, No nasal symptoms, No sore throat, No tinnitus, No dental problems, No trouble swallowing, No problem reported Respiratory: No see HPI, No cough, No sputum, No wheezing, No shortness of breath, No dyspnea on exertion, No dyspnea at rest, No hemoptysis, No problem reported Cardiac: No see HPI, No chest pain, No orthopnea, No PND, No edema, No claudication, No palpitations, No problem reported Abdomen: No see HPI, No pain, No nausea, No vomiting, No diarrhea, No constipation, No GI bleeding, No problem reported Musculoskeletal: No see HPI, No joint pain, No muscle pain, No swelling, No calf pain, No problem reported Neurologic: No see HPI, No memory loss, No paralysis, No weakness, No numbness/ tingling, No vertigo, No balance problems, No problem reported Psychiatric: No see HPI, No depression symptoms, No anhedonism, No anxiety, No insomnia, No substance abuse, No problem reported Heme: No see HPI, No abnormal bleeding/bruising, No clotting problems, No swollen lymph nodes, No night sweats, No problem reported Endo: No see HPI, No fatigue, No excessive thirst, No excessive urination, No problem reported Skin: No see HPI, No rash, No itch, No new/changing skin lesions, No color change, No bleeding, No problem reported Objective Vital Signs Date Time Temp Pulse Resp B/P (MAP) Pulse Ox O2 Delivery O2 Flow Rate FiO2 03/24/17 16:00 95 Room Air 03/24/17 15:47 36.4 70 16 125/80 (95) 95 03/24/17 12:12 36.3 66 16 131/83 (99) 95 Room Air 03/24/17 12:00 95 Room Air 03/24/17 08:00 93 Room Air 03/24/17 07:19 36.5 66 16 136/60 (85) 93 Room Air 03/24/17 05:00 93 Room Air 03/24/17 04:45 36.5 115 18 127/82 (97) 83 Room Air 03/24/17 04:00 Room Air 03/24/17 00:00 Room Air 03/23/17 23:35 36.9 67 16 145/79 (101) 90 Room Air 03/23/17 20:00 Room Air 03/23/17 19:13 36.4 67 16 112/68 (83) 92 Room Air Physical Exam General Appearance: WD/WN, no apparent distress Eyes: normal inspection, EOMI ENT: normal ENT inspection, hearing grossly normal Neck: supple Respiratory/Chest: chest non-tender, lungs clear, normal breath sounds, no respiratory distress, no accessory muscle use Cardiovascular: regular rate, rhythm, no edema, no gallop, no JVD, no murmur Abdomen: normal bowel sounds, non tender, soft, no organomegaly, no pulsatile mass Extremities: non-tender, + inflammation, + swelling 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, no motor/sensory deficits, alert, normal mood/affect, oriented x 3 Skin: + pertinent finding (left heel stage II ulcer, right buttock deep tissue injury) Laboratory Results Last 24 Hours Test 03/24/17 05:15 03/24/17 09:52 White Blood Count 7.97 K/uL Red Blood Count 4.46 M/uL Hemoglobin 11.7 g/dL Hematocrit 35.3 % Mean Corpuscular Volume 79.1 fL Mean Corpuscular Hemoglobin 26.2 pg Mean Corpuscular Hemoglobin Concent 33.1 g/dl Platelet Count 254 K/uL Mean Platelet Volume 9.5 fL Neutrophils (%) (Auto) 69.6 % Lymphocytes (%) (Auto) 18.6 % Monocytes (%) (Auto) 9.3 % Eosinophils (%) (Auto) 1.5 % Basophils (%) (Auto) 0.4 % Neutrophils # (Auto) 5.55 K/uL Lymphocytes # (Auto) 1.48 K/uL Monocytes # (Auto) 0.74 K/uL Eosinophils # (Auto) 0.12 K/uL Basophils # (Auto) 0.03 K/uL RDW Standard Deviation 45.5 fL RDW Coefficient of Variation 15.6 % Immature Granulocyte % (Auto) 0.6 % Immature Granulocyte # (Auto) 0.05 K/uL Ovalocytes 1+ Echinocytes 1+ Sodium Level 136 mmol/L Potassium Level 2.9 mmol/L Chloride Level 104 mmol/L Carbon Dioxide Level 24 mmol/L Anion Gap 8.0 mmol/L Blood Urea Nitrogen 18 mg/dl Creatinine 0.70 mg/dl Est Creatinine Clear Calc Drug Dose 44.1 ml/min Estimated GFR () 93.5 Estimated GFR (Non- 80.7 BUN/Creatinine Ratio 25.1 Random Glucose 97 mg/dl Calcium Level 7.9 mg/dl Phosphorus Level 2.7 mg/dl Magnesium Level 1.6 mg/dl Vancomycin Level Trough 6.8 mcg/ml Assessment and Plan 81-year-old female with past medical history of advanced Alzheimer and an anxiety presented to the ED with change in mental status and found to have cellulitis in her lower extremities. Metabolic encephalopathy, improved Bilateral lower extremity cellulitis Hyponatremia Possible tinea pedis Borderline low blood pressure Hyponatremia likely nutritional Dehydration due to decreased oral intake Advanced dementia left heel stage II ulcer, right buttock deep tissue injury unstageable, both present on admission Hypokalemia and hypomagnesemia Short period of heart block likely secondary to above Plan CT scan head is negative and mental status is significantly improved continue Vanco, and ceftriaxone 2 g IV daily, Streptococcus dose Continue Lactinex Continue ketoconazole for tinea pedis between toes Continue IV fluid hydration Continue home meds as appropriate Replace potassium and magnesium continue monitoring cardiac Heparin for DVT prophylaxis
[2017-03-24 19:39] LABS: BUN/CREATININE RATIO 18.5 (10-20); CALCIUM 7.9 mg/dl (8.5-10.1); CREATININE 1.1 mg/dl (0.60-1.20); POTASSIUM 3.2 mmol/L (3.5-5.1)
[2017-03-24] MEDS: MAGNESIUM OXIDE 400 MG TAB PO SCH (20:10)
[2017-03-24] MEDS ORDERED: VANCOMYCIN INJ 750 MG in SODIUM CHLORIDE 0.9% 250ML 250 ML IV SCH (23:00)
[2017-03-25] VITALS (7 sets, daily range): BP systolic 147–185; BP diastolic 84–93; PULSE 65–75; TEMP 36.3–36.6; O2SAT 90–93
[2017-03-25] MEDS: SODIUM CHLORIDE 0.9% 1000ML 1,000 ML IV SCH ×2 (06:31→20:28)
[2017-03-25 07:59] LABS: BASO % 0.2 %; BASO ABS # 0.02 K/uL (0-0.2); COMPLETE YES; EOS % 1.7 %; HEMATOCRIT 37.1 % (37-47); IG% 0.5 %; LYMPH % 15.5 %; MEAN CELL VOLUME 79.1 fL (80-100); MEAN CORPUSCULAR HEMOGLOBIN 25.6 pg (25-34); MEAN CORPUSCULAR HGB CONC 32.3 g/dl (32-36); MEAN PLATELET VOLUME 9.3 fL (7.4-10.4); MONO % 7.3 %; NEUT % 74.8 %; PLATELET COUNT 328 K/uL (130-400); RED BLOOD COUNT 4.69 M/uL (4.2-5.4); WHITE BLOOD COUNT 9.65 K/uL (4.8-10.8)
[2017-03-25 08:29] LABS: BUN/CREATININE RATIO 20.9 (10-20); CALCIUM 8.5 mg/dl (8.5-10.1); MAGNESIUM 1.8 mg/dl (1.8-2.4); POTASSIUM 3.1 mmol/L (3.5-5.1)
[2017-03-25 08:32] LABS: PHOSPHORUS 3.3 mg/dl (2.5-4.9)
[2017-03-25] MEDS: POT PHOSPHATE MONOBASIC W/ SOD TAB PO SCH ×4 (08:57→20:29)
[2017-03-25] MEDS: KETOCONAZOLE 2% CR 15 GM TUBE EXT SCH ×2 (08:58→20:29)
[2017-03-25] MEDS: POLYETHYLENE (MIRALAX) 17 GM PACK PO SCH (08:58)
[2017-03-25] MEDS: EUCERIN CR 120 GM JAR EXT SCH ×2 (08:58→20:29)
[2017-03-25] MEDS: MAGNESIUM OXIDE 400 MG TAB PO SCH (08:58)
[2017-03-25] MEDS: LACTOBACILLUS ACIDOPHILUS 1 GM PACK PO SCH ×3 (08:58→17:26)
[2017-03-25] MEDS: DONEPEZIL HCL 10 MG TAB PO SCH (08:58)
[2017-03-25] MEDS: ESCITALOPRAM OXALATE 10 MG TAB PO SCH (08:58)
[2017-03-25] MEDS: HEPARIN SOD 5000 UNIT/0.5 ML CARP SQ SCH ×2 (08:59→20:31)
[2017-03-25] MEDS: CEFTRIAXONE SOD INJ 2,000 MG in DEXTROSE 5% 50ML 50 ML IV SCH (14:11)
[2017-03-25] MEDS ORDERED: DOXY1TAB6 PO (14:48)
[2017-03-25] MEDS ORDERED: CEFD1CAP14 PO (14:48)
[2017-03-25] MEDS ORDERED: MGNO400 PO (14:48)
[2017-03-25] MEDS ORDERED: NZRCR EXT (14:48)
[2017-03-25] MEDS ORDERED: MRLP17 PO (14:48)
[2017-03-25] MEDS ORDERED: LCTXP PO (14:48)
--- NOTE | 2017-03-25 16:47 | Progress Note ---
Subjective Date of Service: Mar 25, 2017. Subjective Pt evaluation today including: conversation w/ patient, physical exam, chart review, lab review, review of inpatient medication list Problem List Medical Problems: (1) Cellulitis Status: Acute (2) Change in mental status Status: Acute (3) Failure of outpatient treatment Status: Acute Review of Systems Constitutional: No see HPI, No fever, No chills, No sweats, No weight loss, No weakness, No fatigue, No problem reported Eyes: No see HPI, No worsening of vision, No eye pain, No redness, No discharge , No diplopia, No problem reported ENT: No see HPI, No hearing loss, No unusual epistaxis, No nasal symptoms, No sore throat, No tinnitus, No dental problems, No trouble swallowing, No problem reported Respiratory: No see HPI, No cough, No sputum, No wheezing, No shortness of breath, No dyspnea on exertion, No dyspnea at rest, No hemoptysis, No problem reported Cardiac: No see HPI, No chest pain, No orthopnea, No PND, No edema, No claudication, No palpitations, No problem reported Abdomen: No see HPI, No pain, No nausea, No vomiting, No diarrhea, No constipation, No GI bleeding, No problem reported Musculoskeletal: No see HPI, No joint pain, No muscle pain, No swelling, No calf pain, No problem reported Neurologic: No see HPI, No memory loss, No paralysis, No weakness, No numbness/ tingling, No vertigo, No balance problems, No problem reported Psychiatric: No see HPI, No depression symptoms, No anhedonism, No anxiety, No insomnia, No substance abuse, No problem reported Heme: No see HPI, No abnormal bleeding/bruising, No clotting problems, No swollen lymph nodes, No night sweats, No problem reported Endo: No see HPI, No fatigue, No excessive thirst, No excessive urination, No problem reported Skin: No see HPI, No rash, No itch, No new/changing skin lesions, No color change, No bleeding, No problem reported Objective Vital Signs Date Time Temp Pulse Resp B/P (MAP) Pulse Ox O2 Delivery O2 Flow Rate FiO2 03/25/17 15:30 36.6 67 20 161/93 (115) 93 Room Air 03/25/17 12:30 36.3 69 16 147/90 (109) 93 03/25/17 12:00 Room Air 03/25/17 08:00 Room Air 03/25/17 07:41 36.4 75 16 154/86 (108) 92 Room Air 03/25/17 04:53 36.4 65 16 150/84 (106) 90 Room Air 65 03/25/17 04:00 Room Air 03/25/17 00:00 Room Air 03/24/17 23:42 36.5 61 16 138/76 (96) 94 Room Air 03/24/17 20:00 95 Room Air 03/24/17 19:35 36.3 66 127/84 (98) 92 Room Air Physical Exam General Appearance: WD/WN, no apparent distress Eyes: normal inspection, EOMI ENT: normal ENT inspection, hearing grossly normal Neck: supple Respiratory/Chest: chest non-tender, lungs clear, normal breath sounds, no respiratory distress, no accessory muscle use Cardiovascular: regular rate, rhythm, no edema, no gallop, no JVD, no murmur Abdomen: normal bowel sounds, non tender, soft, no organomegaly Extremities: normal range of motion, + inflammation 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, no motor/sensory deficits, alert, normal mood/affect, + pertinent finding (slightly confused but pleasant and follow commands) Skin: warm/dry, + pertinent finding (erythema in both lower extremities) Laboratory Results Last 24 Hours Test 03/24/17 18:54 03/25/17 07:14 Sodium Level 137 mmol/L 139 mmol/L Potassium Level 3.2 mmol/L 3.1 mmol/L Chloride Level 107 mmol/L 108 mmol/L Carbon Dioxide Level 22 mmol/L 22 mmol/L Anion Gap 8.0 mmol/L 9.0 mmol/L Blood Urea Nitrogen 20 mg/dl 21 mg/dl Creatinine 1.10 mg/dl 1.00 mg/dl Est Creatinine Clear Calc Drug Dose 28.1 ml/min 30.9 ml/min Estimated GFR () 54.1 60.8 Estimated GFR (Non- 46.7 52.4 BUN/Creatinine Ratio 18.5 20.9 Random Glucose 138 mg/dl 111 mg/dl Calcium Level 7.9 mg/dl 8.5 mg/dl White Blood Count 9.65 K/uL Red Blood Count 4.69 M/uL Hemoglobin 12.0 g/dL Hematocrit 37.1 % Mean Corpuscular Volume 79.1 fL Mean Corpuscular Hemoglobin 25.6 pg Mean Corpuscular Hemoglobin Concent 32.3 g/dl Platelet Count 328 K/uL Mean Platelet Volume 9.3 fL Neutrophils (%) (Auto) 74.8 % Lymphocytes (%) (Auto) 15.5 % Monocytes (%) (Auto) 7.3 % Eosinophils (%) (Auto) 1.7 % Basophils (%) (Auto) 0.2 % Neutrophils # (Auto) 7.22 K/uL Lymphocytes # (Auto) 1.50 K/uL Monocytes # (Auto) 0.70 K/uL Eosinophils # (Auto) 0.16 K/uL Basophils # (Auto) 0.02 K/uL RDW Standard Deviation 46.2 fL RDW Coefficient of Variation 16.0 % Immature Granulocyte % (Auto) 0.5 % Immature Granulocyte # (Auto) 0.05 K/uL Phosphorus Level 3.3 mg/dl Magnesium Level 1.8 mg/dl Assessment and Plan 81-year-old female with past medical history of advanced Alzheimer and an anxiety presented to the ED with change in mental status and found to have cellulitis in her lower extremities. Metabolic encephalopathy, improved Bilateral lower extremity cellulitis, improved Hyponatremia Possible tinea pedis Borderline low blood pressure Hyponatremia likely nutritional Dehydration due to decreased oral intake Advanced dementia left heel stage II ulcer, right buttock deep tissue injury unstageable, both present on admission Hypokalemia and hypomagnesemia Short period of heart block likely secondary to above Plan CT scan head is negative and mental status is significantly improved continue Vanco, and ceftriaxone 2 g IV daily, Streptococcus dose, upon discharge can be switched to doxycycline and Ceftin Continue Lactinex Continue ketoconazole for tinea pedis between toes Continue IV fluid hydration Continue home meds as appropriate Replace potassium and magnesium continue monitoring cardiac Heparin for DVT prophylaxis
[2017-03-25] MEDS: VANCOMYCIN INJ 750 MG in SODIUM CHLORIDE 0.9% 250ML 250 ML IV SCH (17:44)
[2017-03-26 04:00] VITALS: BP 159/90; PULSE 76; TEMP 36.4; O2SAT 90
[2017-03-26 06:32] LABS: BUN/CREATININE RATIO 20.4 (10-20); CALCIUM 8.6 mg/dl (8.5-10.1)
[2017-03-26 07:27] VITALS: BP 154/90; PULSE 74; TEMP 36.2; O2SAT 90
[2017-03-26] MEDS: DONEPEZIL HCL 10 MG TAB PO SCH (09:08)
[2017-03-26] MEDS: EUCERIN CR 120 GM JAR EXT SCH ×2 (09:08→19:32)
[2017-03-26] MEDS: SODIUM CHLORIDE 0.9% 1000ML 1,000 ML IV SCH ×2 (09:08→21:03)
[2017-03-26] MEDS: MAGNESIUM OXIDE 400 MG TAB PO SCH (09:08)
[2017-03-26] MEDS: ESCITALOPRAM OXALATE 10 MG TAB PO SCH (09:08)
[2017-03-26] MEDS: POT PHOSPHATE MONOBASIC W/ SOD TAB PO SCH ×2 (09:09→13:05)
[2017-03-26] MEDS: LACTOBACILLUS ACIDOPHILUS 1 GM PACK PO SCH ×3 (09:09→17:47)
[2017-03-26] MEDS: POLYETHYLENE (MIRALAX) 17 GM PACK PO SCH (09:09)
[2017-03-26] MEDS: KETOCONAZOLE 2% CR 15 GM TUBE EXT SCH ×2 (09:09→19:32)
[2017-03-26] MEDS: HEPARIN SOD 5000 UNIT/0.5 ML CARP SQ SCH ×2 (09:20→21:01)
[2017-03-26 11:13] VITALS: BP 150/79; PULSE 74; TEMP 36.4; O2SAT 90
[2017-03-26] MEDS: VANCOMYCIN INJ 750 MG in SODIUM CHLORIDE 0.9% 250ML 250 ML IV SCH (13:03)
--- NOTE | 2017-03-26 14:49 | Progress Note ---
Subjective Date of Service: Mar 26, 2017. Subjective Pt evaluation today including: conversation w/ patient, conversation w/ family , physical exam, chart review, lab review, review of inpatient medication list Problem List Medical Problems: (1) Cellulitis Status: Acute (2) Change in mental status Status: Acute (3) Failure of outpatient treatment Status: Acute Review of Systems Constitutional: No see HPI, No fever, No chills, No sweats, No weight loss, No weakness, No fatigue, No problem reported Eyes: No see HPI, No worsening of vision, No eye pain, No redness, No discharge , No diplopia, No problem reported ENT: No see HPI, No hearing loss, No unusual epistaxis, No nasal symptoms, No sore throat, No tinnitus, No dental problems, No trouble swallowing, No problem reported Respiratory: No see HPI, No cough, No sputum, No wheezing, No shortness of breath, No dyspnea on exertion, No dyspnea at rest, No hemoptysis, No problem reported Cardiac: No see HPI, No chest pain, No orthopnea, No PND, No edema, No claudication, No palpitations, No problem reported Abdomen: No see HPI, No pain, No nausea, No vomiting, No diarrhea, No constipation, No GI bleeding, No problem reported Musculoskeletal: No see HPI, No joint pain, No muscle pain, No swelling, No calf pain, No problem reported Female : No see HPI, No dysuria, No urinary frequency, No hematuria, No incontinence, No abnormal vaginal bleeding, No vaginal discharge, No problem reported Neurologic: No see HPI, No memory loss, No paralysis, No weakness, No numbness/ tingling, No vertigo, No balance problems, No problem reported Psychiatric: No see HPI, No depression symptoms, No anhedonism, No anxiety, No insomnia, No substance abuse, No problem reported Heme: No see HPI, No abnormal bleeding/bruising, No clotting problems, No swollen lymph nodes, No night sweats, No problem reported Endo: No see HPI, No fatigue, No excessive thirst, No excessive urination, No problem reported Skin: No see HPI, No rash, No itch, No new/changing skin lesions, No color change, No bleeding, No problem reported Objective Vital Signs Date Time Temp Pulse Resp B/P (MAP) Pulse Ox O2 Delivery O2 Flow Rate FiO2 03/26/17 11:13 36.4 74 16 150/79 (102) 90 Room Air 03/26/17 08:00 Room Air 03/26/17 07:27 36.2 74 16 154/90 (111) 90 Room Air 03/26/17 04:06 Room Air 03/26/17 04:00 36.4 76 18 159/90 (113) 90 Room Air 03/26/17 00:30 Room Air 03/25/17 23:17 152/84 (106) 03/25/17 22:59 36.4 68 20 185/89 (121) 90 Room Air 03/25/17 20:21 Room Air 03/25/17 19:32 36.4 74 20 160/86 (110) 93 Room Air 03/25/17 16:00 Room Air 03/25/17 15:30 36.6 67 20 161/93 (115) 93 Room Air Physical Exam General Appearance: WD/WN, no apparent distress Eyes: normal inspection, EOMI ENT: normal ENT inspection, hearing grossly normal Neck: supple Respiratory/Chest: chest non-tender, lungs clear, normal breath sounds, no respiratory distress, no accessory muscle use Cardiovascular: regular rate, rhythm, no edema, no gallop, no JVD, no murmur Abdomen: normal bowel sounds, non tender, soft, no organomegaly, no pulsatile mass Extremities: normal range of motion, + inflammation 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, no motor/sensory deficits, alert, normal mood/affect, oriented x 3 Skin: normal color, warm/dry, no rash Laboratory Results Last 24 Hours Test 03/26/17 05:15 Sodium Level 143 mmol/L Potassium Level 3.0 mmol/L Chloride Level 110 mmol/L Carbon Dioxide Level 21 mmol/L Anion Gap 12.0 mmol/L Blood Urea Nitrogen 20 mg/dl Creatinine 1.00 mg/dl Est Creatinine Clear Calc Drug Dose 30.9 ml/min Estimated GFR () 60.8 Estimated GFR (Non- 52.4 BUN/Creatinine Ratio 20.4 Random Glucose 122 mg/dl Calcium Level 8.6 mg/dl Assessment and Plan 81-year-old female with past medical history of advanced Alzheimer and an anxiety presented to the ED with change in mental status and found to have cellulitis in her lower extremities. Metabolic encephalopathy, improved Bilateral lower extremity cellulitis, continues to Hyponatremia Possible tinea pedis Borderline low blood pressure Hyponatremia likely nutritional, improved Dehydration due to decreased oral intake Advanced dementia left heel stage II ulcer, right buttock deep tissue injury unstageable, both present on admission Hypokalemia and hypomagnesemia Short period of heart block likely secondary to above Plan CT scan head is negative and mental status is significantly improved continue Vanco, and ceftriaxone 2 g IV daily, Streptococcus dose, upon discharge can be switched to doxycycline and Ceftin Continue Lactinex Continue ketoconazole for tinea pedis between toes Continue IV fluid hydration Continue home meds as appropriate Replace potassium and magnesium continue monitoring cardiac Heparin for DVT prophylaxis
[2017-03-26 15:21] VITALS: BP 152/81; PULSE 73; TEMP 36.8; O2SAT 93
[2017-03-26] MEDS ORDERED: VANCOMYCIN TROUGH ONE (15:30)
[2017-03-26] MEDS: CEFTRIAXONE SOD INJ 2,000 MG in DEXTROSE 5% 50ML 50 ML IV SCH (15:36)
[2017-03-26] MEDS: POTASSIUM CHLORIDE 20 MEQ TABCR PO SCH ×2 (15:40→19:33)
[2017-03-26 19:44] VITALS: BP 165/73; PULSE 66; TEMP 36.4; O2SAT 93
[2017-03-27 04:00] VITALS: BP 161/82; PULSE 70; TEMP 36.4; O2SAT 92
[2017-03-27] MEDS ORDERED: VANCOMYCIN TROUGH ONE (05:30)
[2017-03-27 05:34] LABS: BASO % 0.1 %; BASO ABS # 0.02 K/uL (0-0.2); COMPLETE YES; HEMATOCRIT 32.2 % (37-47); IG% 1.2 %; LYMPH % 9.3 %; LYMPH ABS # 1.33 K/uL (1.2-3.4); MEAN CELL VOLUME 78.7 fL (80-100); MEAN CORPUSCULAR HEMOGLOBIN 25.9 pg (25-34); MEAN CORPUSCULAR HGB CONC 32.9 g/dl (32-36); MEAN PLATELET VOLUME 8.7 fL (7.4-10.4); MONO % 7.9 %; NEUT % 80.5 %; PLATELET COUNT 310 K/uL (130-400); RED BLOOD COUNT 4.09 M/uL (4.2-5.4); WHITE BLOOD COUNT 14.31 K/uL (4.8-10.8)
[2017-03-27] MEDS: VANCOMYCIN INJ 750 MG in SODIUM CHLORIDE 0.9% 250ML 250 ML IV SCH ×2 (05:57→23:33)
[2017-03-27 06:08] LABS: BUN/CREATININE RATIO 22.4 (10-20); CALCIUM 8.2 mg/dl (8.5-10.1); MAGNESIUM 1.9 mg/dl (1.8-2.4); POTASSIUM 3.1 mmol/L (3.5-5.1)
[2017-03-27] MEDS: LACTOBACILLUS ACIDOPHILUS 1 GM PACK PO SCH ×3 (07:38→16:56)
[2017-03-27] MEDS: EUCERIN CR 120 GM JAR EXT SCH ×2 (07:38→19:43)
[2017-03-27] MEDS: KETOCONAZOLE 2% CR 15 GM TUBE EXT SCH ×2 (07:38→19:44)
[2017-03-27] MEDS: POTASSIUM CHLORIDE 20 MEQ TABCR PO SCH ×2 (07:38→19:44)
[2017-03-27] MEDS: ESCITALOPRAM OXALATE 10 MG TAB PO SCH (07:39)
[2017-03-27] MEDS: MAGNESIUM OXIDE 400 MG TAB PO SCH (07:39)
[2017-03-27] MEDS: POLYETHYLENE (MIRALAX) 17 GM PACK PO SCH (07:39)
[2017-03-27] MEDS: HEPARIN SOD 5000 UNIT/0.5 ML CARP SQ SCH ×2 (07:41→20:50)
[2017-03-27 07:42] VITALS: BP 163/82; PULSE 69; TEMP 36.5; O2SAT 90
[2017-03-27] MEDS: DONEPEZIL HCL 10 MG TAB PO SCH (07:49)
[2017-03-27] MEDS ORDERED: SENN8.6T7 PO (08:16)
--- NOTE | 2017-03-27 08:17 | Discharge Instructions ---
Discharge Instructions Date of Service Mar 27, 2017. Admission Reason for Admission: Cellulitis, Leg Discharge Discharge Diagnosis / Problem: severe cellulitis Discharge Goals Goal(s): Decrease discomfort Activity Recommendations Activity Limitations: resume your previous activity . Current Hospital Diet Patient's current hospital diet: Regular Diet Discharge Diet Recommended Diet: AHA Diet (Heart Healthy) Pending Studies Studies pending at discharge: no Medical Emergencies . Who to Call and When: Medical Emergencies: If at any time you feel your situation is an emergency, please call 911 immediately. . Non-Emergent Contact Non-Emergency issues call your: Primary Care Provider . . "Provider Documentation" section prepared by Simon Gaitan. . VTE Core Measure Inpt VTE Proph given/why not?: Unfractionated heparin SQ, SCD's
[2017-03-27] MEDS: DOCUSATE SODIUM/SENNA 50/8.6MG TAB PO SCH ×2 (09:10→19:43)
--- NOTE | 2017-03-27 09:10 | DIAGNOSTIC IMAGING REPORT ---
KUB CLINICAL HISTORY: Abdominal distention. COMPARISON STUDY: None. FINDINGS: The bowel gas pattern is normal. A rounded mass-like density within the pelvis and lower abdomen is noted with displacement of bowel loops. Left lower lung opacity is noted. IMPRESSION: 1. No evidence for a bowel obstruction. 2. Mass-like density within the pelvis and lower abdomen with displaced bowel loops. This likely reflects a distended bladder. A pelvic mass could appear similar although is statistically less likely. 3. Left basilar opacity which may reflect atelectasis or consolidation. Electronically signed by: Robert Chatterjee M.D. 03/27/2017 9:09 AM Dictated Date/Time: 03/27/2017 9:07 AM
[2017-03-27 11:27] VITALS: BP 160/82; PULSE 78; TEMP 36.4; O2SAT 95
[2017-03-27] MEDS: SODIUM CHLORIDE 0.9% 1000ML 1,000 ML IV SCH ×2 (12:11→22:13)
[2017-03-27] MEDS: CEFTRIAXONE SOD INJ 2,000 MG in DEXTROSE 5% 50ML 50 ML IV SCH (14:01)
[2017-03-27 15:42] VITALS: BP 167/89; PULSE 90; TEMP 34.7; O2SAT 70
[2017-03-27] MEDS ORDERED: POTASSIUM CHLORIDE 20 MEQ TABCR PO STA (16:33)
--- NOTE | 2017-03-27 16:39 | Progress Note ---
Subjective Date of Service: Mar 27, 2017. Subjective Pt evaluation today including: conversation w/ patient, physical exam, chart review, lab review, review of studies, review of inpatient medication list Problem List Medical Problems: (1) Cellulitis Status: Acute (2) Change in mental status Status: Acute (3) Failure of outpatient treatment Status: Acute Review of Systems Constitutional: No see HPI, No fever, No chills, No sweats, No weight loss, No weakness, No fatigue, No problem reported Eyes: No see HPI, No worsening of vision, No eye pain, No redness, No discharge , No diplopia, No problem reported ENT: No see HPI, No hearing loss, No unusual epistaxis, No nasal symptoms, No sore throat, No tinnitus, No dental problems, No trouble swallowing, No problem reported Respiratory: No see HPI, No cough, No sputum, No wheezing, No shortness of breath, No dyspnea on exertion, No dyspnea at rest, No hemoptysis, No problem reported Cardiac: No see HPI, No chest pain, No orthopnea, No PND, No edema, No claudication, No palpitations, No problem reported Abdomen: No see HPI, No pain, No nausea, No vomiting, No diarrhea, No constipation, No GI bleeding, No problem reported Musculoskeletal: No see HPI, No joint pain, No muscle pain, No swelling, No calf pain, No problem reported Neurologic: No see HPI, No memory loss, No paralysis, No weakness, No numbness/ tingling, No vertigo, No balance problems, No problem reported Psychiatric: No see HPI, No depression symptoms, No anhedonism, No anxiety, No insomnia, No substance abuse, No problem reported Heme: No see HPI, No abnormal bleeding/bruising, No clotting problems, No swollen lymph nodes, No night sweats, No problem reported Endo: No see HPI, No fatigue, No excessive thirst, No excessive urination, No problem reported Skin: No see HPI, No rash, No itch, No new/changing skin lesions, No color change, No bleeding, No problem reported Objective Vital Signs Date Time Temp Pulse Resp B/P (MAP) Pulse Ox O2 Delivery O2 Flow Rate FiO2 03/27/17 16:00 Room Air 03/27/17 15:42 34.7 90 16 167/89 (115) 70 Room Air 03/27/17 12:00 Room Air 03/27/17 11:27 36.4 78 16 160/82 (108) 95 Room Air 03/27/17 08:00 Room Air 03/27/17 07:42 36.5 69 16 163/82 (109) 90 Nasal Cannula 2.0 03/27/17 04:01 Room Air 03/27/17 04:00 36.4 70 18 161/82 (108) 92 Room Air 03/27/17 00:24 Room Air 03/26/17 20:06 Room Air 03/26/17 19:44 36.4 66 22 165/73 (103) 93 Room Air Physical Exam General Appearance: no apparent distress Eyes: normal inspection, EOMI ENT: normal ENT inspection, hearing grossly normal Neck: supple Respiratory/Chest: chest non-tender, lungs clear, normal breath sounds, no respiratory distress, no accessory muscle use Cardiovascular: regular rate, rhythm, no edema, no gallop, no JVD, no murmur Abdomen: normal bowel sounds, non tender, soft, no organomegaly, no pulsatile mass Extremities: normal range of motion, non-tender, + inflammation 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-XII 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 as tested, no motor/sensory deficits, alert, normal mood/affect, oriented x 3 Skin: normal color, warm/dry, + rash Laboratory Results Last 24 Hours Test 03/27/17 05:24 White Blood Count 14.31 K/uL Red Blood Count 4.09 M/uL Hemoglobin 10.6 g/dL Hematocrit 32.2 % Mean Corpuscular Volume 78.7 fL Mean Corpuscular Hemoglobin 25.9 pg Mean Corpuscular Hemoglobin Concent 32.9 g/dl Platelet Count 310 K/uL Mean Platelet Volume 8.7 fL Neutrophils (%) (Auto) 80.5 % Lymphocytes (%) (Auto) 9.3 % Monocytes (%) (Auto) 7.9 % Eosinophils (%) (Auto) 1.0 % Basophils (%) (Auto) 0.1 % Neutrophils # (Auto) 11.51 K/uL Lymphocytes # (Auto) 1.33 K/uL Monocytes # (Auto) 1.13 K/uL Eosinophils # (Auto) 0.15 K/uL Basophils # (Auto) 0.02 K/uL RDW Standard Deviation 46.9 fL RDW Coefficient of Variation 16.2 % Immature Granulocyte % (Auto) 1.2 % Immature Granulocyte # (Auto) 0.17 K/uL Sodium Level 141 mmol/L Potassium Level 3.1 mmol/L Chloride Level 113 mmol/L Carbon Dioxide Level 22 mmol/L Anion Gap 6.0 mmol/L Blood Urea Nitrogen 22 mg/dl Creatinine 1.00 mg/dl Est Creatinine Clear Calc Drug Dose 30.9 ml/min Estimated GFR () 60.8 Estimated GFR (Non- 52.4 BUN/Creatinine Ratio 22.4 Random Glucose 111 mg/dl Calcium Level 8.2 mg/dl Magnesium Level 1.9 mg/dl Vancomycin Level Trough 20.8 mcg/ml Assessment and Plan 81-year-old female with past medical history of advanced Alzheimer and an anxiety presented to the ED with change in mental status and found to have cellulitis in her lower extremities. Metabolic encephalopathy, improved severe cellulitis and blisters Bilateral lower extremity Hyponatremia Possible tinea pedis Borderline low blood pressure Hyponatremia likely nutritional, improved Dehydration due to decreased oral intake Advanced dementia left heel stage II ulcer, right buttock deep tissue injury unstageable, both present on admission Hypokalemia and hypomagnesemia Short period of heart block likely secondary to above today had leukocytosis of [address] scan head is negative and mental status is significantly improved continue Vanco, and ceftriaxone 2 g IV daily, Streptococcus dose, upon discharge can be switched to doxycycline and Ceftin Continue Lactinex Continue ketoconazole for tinea pedis between toes Discontinue IV fluid hydration Continue home meds as appropriate Replace potassium and magnesium continue monitoring cardiac As far as her pump and her white blood cell count, no abdominal pain or diarrhea to indicate C. difficile., Will monitor daily while she is in the hospital Heparin for DVT prophylaxis Awaiting disposition to rehabilitation/patient had limited cooperation with physical therapy that made her insurance denied rehabilitation disposition.
[2017-03-27 19:41] VITALS: BP 160/84; PULSE 70; TEMP 36; O2SAT 93
[2017-03-28] VITALS: BP 156/81; PULSE 79; TEMP 36.4; O2SAT 91; O2SAT 93
[2017-03-28 04:00] VITALS: BP 175/86; PULSE 77; TEMP 36.4; O2SAT 93; O2SAT 95
[2017-03-28 07:25] VITALS: BP 166/92; PULSE 86; TEMP 36.5; O2SAT 91
[2017-03-28 08:12] LABS: BASO % 0.3 %; BASO ABS # 0.04 K/uL (0-0.2); COMPLETE YES; EOS % 1.3 %; IG% 1.9 %; LYMPH % 10.2 %; LYMPH ABS # 1.55 K/uL (1.2-3.4); MEAN CELL VOLUME 79.7 fL (80-100); MEAN CORPUSCULAR HGB CONC 32.6 g/dl (32-36); MEAN PLATELET VOLUME 8.8 fL (7.4-10.4); MONO % 9.1 %; NEUT % 77.2 %; PLATELET COUNT 368 K/uL (130-400); RED BLOOD COUNT 4.39 M/uL (4.2-5.4); WHITE BLOOD COUNT 15.13 K/uL (4.8-10.8)
[2017-03-28] MEDS: KETOCONAZOLE 2% CR 15 GM TUBE EXT SCH ×2 (08:12→20:42)
[2017-03-28] MEDS: DONEPEZIL HCL 10 MG TAB PO SCH (08:12)
[2017-03-28] MEDS: POTASSIUM CHLORIDE 20 MEQ TABCR PO SCH ×2 (08:12→20:43)
[2017-03-28] MEDS: EUCERIN CR 120 GM JAR EXT SCH ×2 (08:12→20:43)
[2017-03-28] MEDS: LACTOBACILLUS ACIDOPHILUS 1 GM PACK PO SCH ×3 (08:12→17:38)
[2017-03-28] MEDS: POLYETHYLENE (MIRALAX) 17 GM PACK PO SCH (08:13)
[2017-03-28] MEDS: MAGNESIUM OXIDE 400 MG TAB PO SCH (08:13)
[2017-03-28] MEDS: DOCUSATE SODIUM/SENNA 50/8.6MG TAB PO SCH ×2 (08:13→20:43)
[2017-03-28] MEDS: ESCITALOPRAM OXALATE 10 MG TAB PO SCH (08:13)
[2017-03-28] MEDS: HEPARIN SOD 5000 UNIT/0.5 ML CARP SQ SCH ×2 (08:25→20:47)
[2017-03-28 08:41] LABS: BUN/CREATININE RATIO 21.1 (10-20); CALCIUM 8.8 mg/dl (8.5-10.1); CREATININE 0.92 mg/dl (0.60-1.20); POTASSIUM 3.6 mmol/L (3.5-5.1)
[2017-03-28 08:46] LABS: ALB/GLOB RATIO 0.6 (0.9-2)
[2017-03-28 11:45] VITALS: BP 177/94; PULSE 80; TEMP 36.6; O2SAT 100
[2017-03-28] MEDS ORDERED: FUROSEMIDE 40 MG TAB PO ONE (12:00)
--- NOTE | 2017-03-28 13:03 | Hospitalist Progress Note ---
Hospitalist Progress Note Date of Service Mar 28, 2017. Subjective Pt evaluation today including: conversation w/ patient, physical exam, chart review, lab review, review of studies, review of inpatient medication list Patient seen and evaluated. No acute events overnight. Patient is pleasant and cooperative but only oriented to self. Legs look markedly improved compared to admission assessment. Patient verbalizes no complaints. Awaiting insurance denial letter and family appeal. Constitutional: No fever, No chills Respiratory: No shortness of breath Cardiovascular: No chest pain Abdomen: No pain, No nausea, No vomiting Musculoskeletal: No joint pain, No muscle pain Female : No dysuria Skin: No rash Medications Current Inpatient Medications Medications (Trade) Dose Ordered Sig/Ryan Route Start Time Stop Time Status Last Admin Dose Admin Heparin Sodium (Porcine) (Heparin Sq 5000 Unit/0.5ml) 5,000 unit Q12 SQ 03/21/17 21:00 04/20/17 20:59 03/28/17 08:25 5,000 UNIT Acetaminophen (Tylenol Tab) 650 mg Q4H PRN PO 03/21/17 16:30 04/20/17 16:29 Al Hydrox/Mg Hydrox/Simethicone (Maalox Max Susp) 15 ml Q4H PRN PO 03/21/17 16:30 04/20/17 16:29 Magnesium Hydroxide (Milk Of Magnesia Susp) 30 ml Q12H PRN PO 03/21/17 16:30 04/20/17 16:29 Ondansetron HCl (Zofran Inj) 4 mg Q6H PRN IV 03/21/17 16:30 04/20/17 16:29 Polyethylene (Miralax Powder Packet) 17 gm DAILY PRN PO 03/21/17 16:30 04/20/17 16:29 Donepezil HCl (Aricept Tab) 10 mg DAILY PO 03/22/17 09:00 04/21/17 08:59 03/28/17 08:12 10 MG Escitalopram Oxalate (Lexapro Tab) 10 mg DAILY PO 03/22/17 09:00 04/21/17 08:59 03/28/17 08:13 10 MG Vancomycin HCl (Consult) 1 ea UD PRN N/A 03/21/17 20:45 04/20/17 20:44 Multi-Ingredient Ointment (Eucerin Unscented Cr) 1 appln BID EXT 03/23/17 21:00 04/22/17 20:59 03/28/17 08:12 1 APPLN Ceftriaxone Sodium 2000 mg/ Dextrose 70 ml @ 100 mls/hr Q24H IV 03/23/17 14:00 04/02/17 13:59 03/27/17 14:01 100 MLS/HR Lactobacillus Acidophilus (Lactinex Granules Pack) 1 gm TIDM PO 03/23/17 17:00 04/22/17 16:59 03/28/17 08:12 1 GM Polyethylene (Miralax Powder Packet) 17 gm DAILY PO 03/24/17 09:00 04/23/17 08:59 03/28/17 08:13 17 GM Ketoconazole (Nizoral 2% Crm) 1 appln BID EXT 03/23/17 21:00 04/02/17 20:59 03/28/17 08:12 1 APPLN Magnesium Oxide (Mag-Ox Tab) 400 mg QAM PO 03/24/17 19:00 04/23/17 18:59 03/28/17 08:13 400 MG Vancomycin HCl 750 mg/Sodium Chloride 265 ml @ 125 mls/hr Q18H IV 03/25/17 18:00 03/31/17 17:59 03/27/17 23:33 125 MLS/HR Potassium Chloride (Klor-Con Tab) 20 meq BID PO 03/26/17 15:00 04/25/17 14:59 03/28/17 08:12 20 MEQ Senna/Docusate Sodium (Senokot S Tab) 1 tab BID PO 03/27/17 09:00 04/26/17 08:59 03/28/17 08:13 1 TAB Objective Vital Signs Date Time Temp Pulse Resp B/P (MAP) Pulse Ox O2 Delivery O2 Flow Rate FiO2 03/28/17 11:45 36.6 80 18 177/94 (121) 100 Nasal Cannula 3.0 03/28/17 11:45 Nasal Cannula 3.0 03/28/17 07:45 Nasal Cannula 2.0 03/28/17 07:25 36.5 86 18 166/92 (116) 91 Nasal Cannula 2.0 03/28/17 04:00 93 Room Air 03/28/17 04:00 36.4 77 18 175/86 (115) 95 Room Air 03/28/17 00:00 36.4 79 18 156/81 (106) 91 Room Air 03/28/17 00:00 93 Room Air 03/27/17 20:09 Room Air 03/27/17 19:41 36.0 70 18 160/84 (109) 93 Room Air 03/27/17 16:00 Room Air 03/27/17 15:42 34.7 90 16 167/89 (115) 70 Room Air Physical Exam General Appearance: no apparent distress, + thin Eyes: sclerae normal Neck: supple, no JVD, trachea midline Respiratory/Chest: lungs clear, normal breath sounds, no respiratory distress, no accessory muscle use Cardiovascular: regular rate, rhythm, no gallop, no murmur Abdomen: normal bowel sounds, non tender, soft Extremities: + pertinent finding (erythema reduced from admission; mildly edematous) Neurologic/Psychiatric: alert, + disoriented Skin: normal color, warm/dry Laboratory Results Last 24 Hours Test 03/28/17 07:32 White Blood Count 15.13 K/uL Red Blood Count 4.39 M/uL Hemoglobin 11.4 g/dL Hematocrit 35.0 % Mean Corpuscular Volume 79.7 fL Mean Corpuscular Hemoglobin 26.0 pg Mean Corpuscular Hemoglobin Concent 32.6 g/dl Platelet Count 368 K/uL Mean Platelet Volume 8.8 fL Neutrophils (%) (Auto) 77.2 % Lymphocytes (%) (Auto) 10.2 % Monocytes (%) (Auto) 9.1 % Eosinophils (%) (Auto) 1.3 % Basophils (%) (Auto) 0.3 % Neutrophils # (Auto) 11.70 K/uL Lymphocytes # (Auto) 1.55 K/uL Monocytes # (Auto) 1.37 K/uL Eosinophils # (Auto) 0.19 K/uL Basophils # (Auto) 0.04 K/uL RDW Standard Deviation 48.5 fL RDW Coefficient of Variation 16.9 % Immature Granulocyte % (Auto) 1.9 % Immature Granulocyte # (Auto) 0.28 K/uL Sodium Level 143 mmol/L Potassium Level 3.6 mmol/L Chloride Level 113 mmol/L Carbon Dioxide Level 23 mmol/L Anion Gap 7.0 mmol/L Blood Urea Nitrogen 19 mg/dl Creatinine 0.92 mg/dl Est Creatinine Clear Calc Drug Dose 33.6 ml/min Estimated GFR () 67.2 Estimated GFR (Non- 58.0 BUN/Creatinine Ratio 21.1 Random Glucose 98 mg/dl Calcium Level 8.8 mg/dl Magnesium Level 2.0 mg/dl Total Bilirubin 0.4 mg/dl Aspartate Amino Transf (AST/SGOT) 24 U/L Alanine Aminotransferase (ALT/SGPT) 22 U/L Alkaline Phosphatase 91 U/L Total Protein 6.1 gm/dl Albumin 2.3 gm/dl Globulin 3.8 gm/dl Albumin/Globulin Ratio 0.6 Assessment and Plan Ms. Bradley is an 81 y/o female with PMHx of Senile Dementia of Alzheimer's Type and Anxiety who presents to the ED due to fever and AMS starting this AM. Placed on Keflex x 2 courses and Bactrim x 1 course for bilateral lower extremity cellulitis. Metabolic Encephalopathy: RESOLVED Bilateral Lower Extremity Cellulitis and Possible Tinea Pedis: IMPROVING - On antibiotics since 03/09 with noted improvement but not at baseline with noted increased confusion from baseline - R worse than L - Vancomycin and Ceftriaxone 2 g IV with conversion to Doxycycline and Ceftin on D/C - DAY #03/07 total antibiotic coverage - Topical Ketoconazole for tinea pedis Hyponatremia: RESOLVED - Continue to monitor SDAT: - Donepezil 10 mg daily and Lexapro 10 mg daily (increased on 03/15 from 5 mg) DVT Prophylaxis: Heparin 5000 units SC BID Code Status: DO NOT RESUSCITATE Disposition: - Lives alone with caregivers and daughter and son visits - is ambulatory without assistive devices - Awaiting insurance appeal process for [facility] Continued [facility] stay due to: other (insurance approval) Discharge planning: prison facility
[2017-03-28] MEDS: CEFTRIAXONE SOD INJ 2,000 MG in DEXTROSE 5% 50ML 50 ML IV SCH (13:34)
[2017-03-28 15:04] VITALS: BP 179/101; PULSE 84; TEMP 36.5; O2SAT 90
[2017-03-28] MEDS: VANCOMYCIN INJ 750 MG in SODIUM CHLORIDE 0.9% 250ML 250 ML IV SCH (18:35)
[2017-03-28 19:19] VITALS: BP 164/80; PULSE 74; TEMP 36.4; O2SAT 90
[2017-03-29] VITALS (9 sets, daily range): BP systolic 147–182; BP diastolic 84–95; PULSE 73–91; TEMP 36–37; O2SAT 92–96
[2017-03-29 07:11] LABS: HEMATOCRIT 35.1 % (37-47); MEAN CELL VOLUME 78.7 fL (80-100); MEAN CORPUSCULAR HEMOGLOBIN 25.6 pg (25-34); MEAN CORPUSCULAR HGB CONC 32.5 g/dl (32-36); MEAN PLATELET VOLUME 8.8 fL (7.4-10.4); PLATELET COUNT 346 K/uL (130-400); RED BLOOD COUNT 4.46 M/uL (4.2-5.4); WHITE BLOOD COUNT 12.54 K/uL (4.8-10.8)
[2017-03-29 07:47] LABS: CALCIUM 9.2 mg/dl (8.5-10.1); POTASSIUM 3.2 mmol/L (3.5-5.1)
[2017-03-29] MEDS: KETOCONAZOLE 2% CR 15 GM TUBE EXT SCH ×2 (07:51→21:32)
[2017-03-29] MEDS: DONEPEZIL HCL 10 MG TAB PO SCH (07:51)
[2017-03-29] MEDS: EUCERIN CR 120 GM JAR EXT SCH ×2 (07:51→21:32)
[2017-03-29] MEDS: LACTOBACILLUS ACIDOPHILUS 1 GM PACK PO SCH ×3 (07:51→17:12)
[2017-03-29] MEDS: ESCITALOPRAM OXALATE 10 MG TAB PO SCH (07:51)
[2017-03-29] MEDS: POTASSIUM CHLORIDE 20 MEQ TABCR PO SCH ×2 (07:51→21:29)
[2017-03-29] MEDS: POLYETHYLENE (MIRALAX) 17 GM PACK PO SCH (07:52)
[2017-03-29] MEDS: DOCUSATE SODIUM/SENNA 50/8.6MG TAB PO SCH ×2 (07:52→21:30)
[2017-03-29] MEDS: MAGNESIUM OXIDE 400 MG TAB PO SCH (07:52)
[2017-03-29] MEDS: HEPARIN SOD 5000 UNIT/0.5 ML CARP SQ SCH ×2 (07:54→21:43)
[2017-03-29] MEDS ORDERED: POTASSIUM CHLORIDE 10 MEQ TABCR PO ONE (09:30)
[2017-03-29] MEDS ORDERED: FUROSEMIDE 40 MG TAB PO ONE (12:00)
[2017-03-29] MEDS: VANCOMYCIN INJ 750 MG in SODIUM CHLORIDE 0.9% 250ML 250 ML IV SCH (12:20)
--- NOTE | 2017-03-29 12:48 | Hospitalist Progress Note ---
Hospitalist Progress Note Date of Service Mar 29, 2017. Subjective Pt evaluation today including: conversation w/ patient, physical exam, chart review, lab review, review of studies, review of inpatient medication list Voiding: stinson catheter in place Patient seen and evaluated. No acute events overnight. Patient is incontinent of urine and continues to soak dressing for pressure ulcer. Stinson catheter was inserted this AM. Patient appears to have tolerated the procedure well. She remains pleasantly confused and only oriented to self. Legs look less erythematous but remains edematous. Awaiting appeal process as patient is unsafe to return home. Constitutional: No fever, No chills Respiratory: No shortness of breath Cardiovascular: No chest pain Abdomen: No pain, No nausea, No vomiting Musculoskeletal: No joint pain, No calf pain Female : No dysuria Medications Current Inpatient Medications Medications (Trade) Dose Ordered Sig/Ryan Route Start Time Stop Time Status Last Admin Dose Admin Heparin Sodium (Porcine) (Heparin Sq 5000 Unit/0.5ml) 5,000 unit Q12 SQ 03/21/17 21:00 04/20/17 20:59 03/29/17 07:54 5,000 UNIT Acetaminophen (Tylenol Tab) 650 mg Q4H PRN PO 03/21/17 16:30 04/20/17 16:29 Al Hydrox/Mg Hydrox/Simethicone (Maalox Max Susp) 15 ml Q4H PRN PO 03/21/17 16:30 04/20/17 16:29 Magnesium Hydroxide (Milk Of Magnesia Susp) 30 ml Q12H PRN PO 03/21/17 16:30 04/20/17 16:29 Ondansetron HCl (Zofran Inj) 4 mg Q6H PRN IV 03/21/17 16:30 04/20/17 16:29 Polyethylene (Miralax Powder Packet) 17 gm DAILY PRN PO 03/21/17 16:30 04/20/17 16:29 Donepezil HCl (Aricept Tab) 10 mg DAILY PO 03/22/17 09:00 04/21/17 08:59 03/29/17 07:51 10 MG Escitalopram Oxalate (Lexapro Tab) 10 mg DAILY PO 03/22/17 09:00 04/21/17 08:59 03/29/17 07:51 10 MG Vancomycin HCl (Consult) 1 ea UD PRN N/A 03/21/17 20:45 04/20/17 20:44 Multi-Ingredient Ointment (Eucerin Unscented Cr) 1 appln BID EXT 03/23/17 21:00 04/22/17 20:59 03/29/17 07:51 1 APPLN Ceftriaxone Sodium 2000 mg/ Dextrose 70 ml @ 100 mls/hr Q24H IV 03/23/17 14:00 04/02/17 13:59 03/28/17 13:34 100 MLS/HR Lactobacillus Acidophilus (Lactinex Granules Pack) 1 gm TIDM PO 03/23/17 17:00 04/22/17 16:59 03/29/17 12:18 1 GM Polyethylene (Miralax Powder Packet) 17 gm DAILY PO 03/24/17 09:00 04/23/17 08:59 03/29/17 07:52 17 GM Ketoconazole (Nizoral 2% Crm) 1 appln BID EXT 03/23/17 21:00 04/02/17 20:59 03/29/17 07:51 1 APPLN Magnesium Oxide (Mag-Ox Tab) 400 mg QAM PO 03/24/17 19:00 04/23/17 18:59 03/29/17 07:52 400 MG Vancomycin HCl 750 mg/Sodium Chloride 265 ml @ 125 mls/hr Q18H IV 03/25/17 18:00 03/31/17 17:59 03/29/17 12:20 125 MLS/HR Potassium Chloride (Klor-Con Tab) 20 meq BID PO 03/26/17 15:00 04/25/17 14:59 03/29/17 07:51 20 MEQ Senna/Docusate Sodium (Senokot S Tab) 1 tab BID PO 03/27/17 09:00 04/26/17 08:59 03/29/17 07:52 1 TAB Furosemide (Lasix Tab) 40 mg QAM PO 03/30/17 09:00 04/29/17 08:59 Objective Vital Signs Date Time Temp Pulse Resp B/P (MAP) Pulse Ox O2 Delivery O2 Flow Rate FiO2 03/29/17 11:20 36.8 74 18 168/86 (113) 94 Nasal Cannula 3.0 03/29/17 07:45 Nasal Cannula 3.0 03/29/17 07:16 36.4 75 18 172/90 (117) 92 Nasal Cannula 3.0 03/29/17 04:31 162/95 (117) 03/29/17 04:00 Nasal Cannula 3.0 03/29/17 03:16 37.0 75 18 182/85 (117) 95 2.0 03/29/17 00:02 36.8 91 20 155/95 (115) 93 2.0 03/29/17 00:00 Nasal Cannula 3.0 03/28/17 20:01 Nasal Cannula 3.0 03/28/17 19:19 36.4 74 20 164/80 (108) 90 03/28/17 16:00 Nasal Cannula 3.0 03/28/17 15:04 36.5 84 20 179/101 (127) 90 Nasal Cannula 3.0 Physical Exam General Appearance: no apparent distress, + thin Eyes: sclerae normal ENT: hearing grossly normal Neck: supple, no JVD, trachea midline Respiratory/Chest: lungs clear, normal breath sounds, no respiratory distress, no accessory muscle use Cardiovascular: regular rate, rhythm, no gallop, no murmur Abdomen: normal bowel sounds, non tender, soft Extremities: no calf tenderness, + swelling (1-2+ pitting edema b/l lower extremities), + pertinent finding (minimal erythema) Neurologic/Psychiatric: alert, + disoriented Skin: normal color, warm/dry Laboratory Results Last 24 Hours Test 03/29/17 06:50 White Blood Count 12.54 K/uL Red Blood Count 4.46 M/uL Hemoglobin 11.4 g/dL Hematocrit 35.1 % Mean Corpuscular Volume 78.7 fL Mean Corpuscular Hemoglobin 25.6 pg Mean Corpuscular Hemoglobin Concent 32.5 g/dl RDW Standard Deviation 48.1 fL RDW Coefficient of Variation 17.1 % Platelet Count 346 K/uL Mean Platelet Volume 8.8 fL Sodium Level 142 mmol/L Potassium Level 3.2 mmol/L Chloride Level 109 mmol/L Carbon Dioxide Level 26 mmol/L Anion Gap 7.0 mmol/L Blood Urea Nitrogen 20 mg/dl Creatinine 1.00 mg/dl Est Creatinine Clear Calc Drug Dose 30.9 ml/min Estimated GFR () 60.8 Estimated GFR (Non- 52.4 BUN/Creatinine Ratio 20.0 Random Glucose 96 mg/dl Calcium Level 9.2 mg/dl Assessment and Plan Ms. Bradley is an 81 y/o female with PMHx of Senile Dementia of Alzheimer's Type and Anxiety who presents to the ED due to fever and AMS starting this AM. Placed on Keflex x 2 courses and Bactrim x 1 course for bilateral lower extremity cellulitis. Metabolic Encephalopathy: RESOLVED Bilateral Lower Extremity Cellulitis and Possible Tinea Pedis: IMPROVING - On antibiotics since 03/09 with noted improvement but not at baseline with noted increased confusion from baseline - R worse than L - Vancomycin and Ceftriaxone 2 g IV with conversion to Doxycycline and Ceftin on D/C - DAY #04/07 total antibiotic coverage - Topical Ketoconazole for tinea pedis Hyponatremia: RESOLVED - Continue to monitor SDAT: - Donepezil 10 mg daily and Lexapro 10 mg daily (increased on 03/15 from 5 mg) DVT Prophylaxis: Heparin 5000 units SC BID Code Status: DO NOT RESUSCITATE Disposition: - Lives alone with caregivers and daughter and son visits - is ambulatory without assistive devices - Awaiting insurance appeal process for [facility] Continued [facility] stay due to: home environment unsafe for pt Discharge planning: assisted facility
[2017-03-29] MEDS: CEFTRIAXONE SOD INJ 2,000 MG in DEXTROSE 5% 50ML 50 ML IV SCH (14:30)
[2017-03-30] MEDS ORDERED: VANCOMYCIN TROUGH ONE (05:30)
[2017-03-30 05:31] LABS: BASO % 0.6 %; BASO ABS # 0.05 K/uL (0-0.2); COMPLETE YES; EOS % 4.3 %; HEMATOCRIT 32.7 % (37-47); LYMPH % 15.2 %; MEAN CELL VOLUME 79.6 fL (80-100); MEAN CORPUSCULAR HEMOGLOBIN 25.8 pg (25-34); MEAN CORPUSCULAR HGB CONC 32.4 g/dl (32-36); MEAN PLATELET VOLUME 8.7 fL (7.4-10.4); MONO % 13.9 %; PLATELET COUNT 284 K/uL (130-400); RED BLOOD COUNT 4.11 M/uL (4.2-5.4); WHITE BLOOD COUNT 8.55 K/uL (4.8-10.8)
[2017-03-30] MEDS: VANCOMYCIN INJ 750 MG in SODIUM CHLORIDE 0.9% 250ML 250 ML IV SCH (05:53)
[2017-03-30 05:57] LABS: BUN/CREATININE RATIO 19.6 (10-20); CALCIUM 8.6 mg/dl (8.5-10.1); CREATININE 0.7 mg/dl (0.60-1.20); MAGNESIUM 1.8 mg/dl (1.8-2.4); POTASSIUM 3.4 mmol/L (3.5-5.1)
[2017-03-30 07:18] VITALS: BP 152/82; PULSE 87; TEMP 36.4; O2SAT 97
[2017-03-30] MEDS: ESCITALOPRAM OXALATE 10 MG TAB PO SCH (08:44)
[2017-03-30] MEDS: MAGNESIUM OXIDE 400 MG TAB PO SCH (08:44)
[2017-03-30] MEDS: FUROSEMIDE 40 MG TAB PO SCH (08:44)
[2017-03-30] MEDS: EUCERIN CR 120 GM JAR EXT SCH ×2 (08:44→20:44)
[2017-03-30] MEDS: KETOCONAZOLE 2% CR 15 GM TUBE EXT SCH ×2 (08:44→20:41)
[2017-03-30] MEDS: POTASSIUM CHLORIDE 20 MEQ TABCR PO SCH ×2 (08:44→20:43)
[2017-03-30] MEDS: LACTOBACILLUS ACIDOPHILUS 1 GM PACK PO SCH ×3 (08:44→16:31)
[2017-03-30] MEDS: DONEPEZIL HCL 10 MG TAB PO SCH (08:44)
[2017-03-30] MEDS: DOCUSATE SODIUM/SENNA 50/8.6MG TAB PO SCH ×2 (08:44→20:42)
[2017-03-30] MEDS: POLYETHYLENE (MIRALAX) 17 GM PACK PO SCH (08:44)
[2017-03-30] MEDS: HEPARIN SOD 5000 UNIT/0.5 ML CARP SQ SCH ×2 (08:45→21:20)
[2017-03-30] MEDS ORDERED: POTASSIUM CHLORIDE 10 MEQ TABCR PO STA (11:01)
--- NOTE | 2017-03-30 11:08 | Hospitalist Progress Note ---
Hospitalist Progress Note Date of Service Mar 30, 2017. Subjective Pt evaluation today including: conversation w/ patient, physical exam, chart review, lab review, review of studies, review of inpatient medication list Voiding: stinson catheter in place Patient seen and evaluated. Continues to be pleasantly confused. Gets easily agitated and combative with interventions. Stinson with minimal blood. Anticipate this is from trauma when being placed. Did not allow wound care nurse to evaluated wound on buttocks Cellulitis improved and edema looks improved. Pitting edema remains. Is still on O2 but rarely keeps this one. Reinforcement given but patient is largely non- compliant Constitutional: No fever, No chills Respiratory: No shortness of breath Cardiovascular: No chest pain Abdomen: No pain, No nausea, No vomiting Medications Current Inpatient Medications Medications (Trade) Dose Ordered Sig/Ryan Route Start Time Stop Time Status Last Admin Dose Admin Heparin Sodium (Porcine) (Heparin Sq 5000 Unit/0.5ml) 5,000 unit Q12 SQ 03/21/17 21:00 04/20/17 20:59 03/30/17 08:45 5,000 UNIT Acetaminophen (Tylenol Tab) 650 mg Q4H PRN PO 03/21/17 16:30 04/20/17 16:29 Al Hydrox/Mg Hydrox/Simethicone (Maalox Max Susp) 15 ml Q4H PRN PO 03/21/17 16:30 04/20/17 16:29 Magnesium Hydroxide (Milk Of Magnesia Susp) 30 ml Q12H PRN PO 03/21/17 16:30 04/20/17 16:29 Ondansetron HCl (Zofran Inj) 4 mg Q6H PRN IV 03/21/17 16:30 04/20/17 16:29 Polyethylene (Miralax Powder Packet) 17 gm DAILY PRN PO 03/21/17 16:30 04/20/17 16:29 Donepezil HCl (Aricept Tab) 10 mg DAILY PO 03/22/17 09:00 04/21/17 08:59 03/30/17 08:44 10 MG Escitalopram Oxalate (Lexapro Tab) 10 mg DAILY PO 03/22/17 09:00 04/21/17 08:59 03/30/17 08:44 10 MG Vancomycin HCl (Consult) 1 ea UD PRN N/A 03/21/17 20:45 04/20/17 20:44 Multi-Ingredient Ointment (Eucerin Unscented Cr) 1 appln BID EXT 03/23/17 21:00 04/22/17 20:59 03/30/17 08:44 1 APPLN Ceftriaxone Sodium 2000 mg/ Dextrose 70 ml @ 100 mls/hr Q24H IV 03/23/17 14:00 04/02/17 13:59 03/29/17 14:30 100 MLS/HR Lactobacillus Acidophilus (Lactinex Granules Pack) 1 gm TIDM PO 03/23/17 17:00 04/22/17 16:59 03/30/17 08:44 1 GM Polyethylene (Miralax Powder Packet) 17 gm DAILY PO 03/24/17 09:00 04/23/17 08:59 03/30/17 08:44 17 GM Ketoconazole (Nizoral 2% Crm) 1 appln BID EXT 03/23/17 21:00 04/02/17 20:59 03/30/17 08:44 1 APPLN Magnesium Oxide (Mag-Ox Tab) 400 mg QAM PO 03/24/17 19:00 04/23/17 18:59 03/30/17 08:44 400 MG Vancomycin HCl 750 mg/Sodium Chloride 265 ml @ 125 mls/hr Q18H IV 03/25/17 18:00 03/31/17 17:59 03/30/17 05:53 125 MLS/HR Potassium Chloride (Klor-Con Tab) 20 meq BID PO 03/26/17 15:00 04/25/17 14:59 03/30/17 08:44 20 MEQ Senna/Docusate Sodium (Senokot S Tab) 1 tab BID PO 03/27/17 09:00 04/26/17 08:59 03/30/17 08:44 1 TAB Furosemide (Lasix Tab) 40 mg QAM PO 03/30/17 09:00 04/29/17 08:59 03/30/17 08:44 40 MG Objective Vital Signs Date Time Temp Pulse Resp B/P (MAP) Pulse Ox O2 Delivery O2 Flow Rate FiO2 03/30/17 08:00 Nasal Cannula 3.0 03/30/17 07:18 36.4 87 20 152/82 (105) 97 3.0 03/30/17 00:00 Nasal Cannula 3.0 03/29/17 23:32 36.0 83 20 152/84 (106) 95 Nasal Cannula 3.0 03/29/17 19:21 36.2 74 20 148/92 (110) 96 Nasal Cannula 3.0 03/29/17 16:00 92 Nasal Cannula 3.0 03/29/17 14:54 36.4 73 20 147/91 (109) 92 Nasal Cannula 3.0 03/29/17 12:30 Nasal Cannula 3.0 03/29/17 11:20 36.8 74 18 168/86 (113) 94 Nasal Cannula 3.0 Physical Exam General Appearance: no apparent distress, + thin Eyes: sclerae normal ENT: hearing grossly normal Neck: supple, no JVD, trachea midline Respiratory/Chest: lungs clear, normal breath sounds, no respiratory distress, no accessory muscle use Cardiovascular: regular rate, rhythm, no gallop, no murmur Abdomen: normal bowel sounds, non tender, soft Extremities: no calf tenderness, + pertinent finding (minimal erythema; 1+ pitting edema but looks improved) Neurologic/Psychiatric: alert, + disoriented Skin: normal color, warm/dry Laboratory Results Last 24 Hours Test 03/30/17 05:18 White Blood Count 8.55 K/uL Red Blood Count 4.11 M/uL Hemoglobin 10.6 g/dL Hematocrit 32.7 % Mean Corpuscular Volume 79.6 fL Mean Corpuscular Hemoglobin 25.8 pg Mean Corpuscular Hemoglobin Concent 32.4 g/dl Platelet Count 284 K/uL Mean Platelet Volume 8.7 fL Neutrophils (%) (Auto) 64.0 % Lymphocytes (%) (Auto) 15.2 % Monocytes (%) (Auto) 13.9 % Eosinophils (%) (Auto) 4.3 % Basophils (%) (Auto) 0.6 % Neutrophils # (Auto) 5.47 K/uL Lymphocytes # (Auto) 1.30 K/uL Monocytes # (Auto) 1.19 K/uL Eosinophils # (Auto) 0.37 K/uL Basophils # (Auto) 0.05 K/uL RDW Standard Deviation 48.7 fL RDW Coefficient of Variation 17.1 % Immature Granulocyte % (Auto) 2.0 % Immature Granulocyte # (Auto) 0.17 K/uL Sodium Level 142 mmol/L Potassium Level 3.4 mmol/L Chloride Level 106 mmol/L Carbon Dioxide Level 31 mmol/L Anion Gap 5.0 mmol/L Blood Urea Nitrogen 14 mg/dl Creatinine 0.70 mg/dl Est Creatinine Clear Calc Drug Dose 44.1 ml/min Estimated GFR () 93.5 Estimated GFR (Non- 80.7 BUN/Creatinine Ratio 19.6 Random Glucose 81 mg/dl Calcium Level 8.6 mg/dl Magnesium Level 1.8 mg/dl Vancomycin Level Trough 19.9 mcg/ml Assessment and Plan Ms. Bradley is an 81 y/o female with PMHx of Senile Dementia of Alzheimer's Type and Anxiety who presents to the ED due to fever and AMS starting this AM. Placed on Keflex x 2 courses and Bactrim x 1 course for bilateral lower extremity cellulitis. Metabolic Encephalopathy: RESOLVED Bilateral Lower Extremity Cellulitis and Possible Tinea Pedis: IMPROVING - On antibiotics since 03/09 with noted improvement but not at baseline with noted increased confusion from baseline - R worse than L - Vancomycin and Ceftriaxone 2 g IV but will convert to Doxycycline and Ceftin for tomorrow - DAY #05/07 total antibiotic coverage - Topical Ketoconazole for tinea pedis Hyponatremia: RESOLVED - Continue to monitor SDAT: BASELINE - Donepezil 10 mg daily and Lexapro 10 mg daily (increased on 03/15 from 5 mg) DVT Prophylaxis: Heparin 5000 units SC BID Code Status: DO NOT RESUSCITATE Disposition: - Lives alone with caregivers and daughter and son visits - is ambulatory without assistive devices - Awaiting insurance appeal process for [facility] Continued [facility] stay due to: home environment unsafe for pt Discharge planning: longterm facility
[2017-03-30] MEDS: CEFTRIAXONE SOD INJ 2,000 MG in DEXTROSE 5% 50ML 50 ML IV SCH (14:04)
[2017-03-30 16:15] VITALS: BP 149/79; PULSE 80; TEMP 36.7; O2SAT 94
[2017-03-30] MEDS: DOXYCYCLINE HYCLATE 100 MG CAP PO SCH (20:41)
[2017-03-31] VITALS: BP 142/80; PULSE 80; TEMP 36.4; O2SAT 94
[2017-03-31 07:28] VITALS: BP 147/75; PULSE 81; TEMP 36.4; O2SAT 90
[2017-03-31] MEDS: POLYETHYLENE (MIRALAX) 17 GM PACK PO SCH (08:48)
[2017-03-31] MEDS: DOCUSATE SODIUM/SENNA 50/8.6MG TAB PO SCH ×2 (08:48→21:35)
[2017-03-31] MEDS: EUCERIN CR 120 GM JAR EXT SCH ×2 (08:49→21:35)
[2017-03-31] MEDS: KETOCONAZOLE 2% CR 15 GM TUBE EXT SCH ×2 (08:49→21:35)
[2017-03-31] MEDS: CEPHALEXIN MONOHYDRATE 500 MG CAP PO SCH ×2 (08:52→21:36)
[2017-03-31] MEDS: DONEPEZIL HCL 10 MG TAB PO SCH (08:52)
[2017-03-31] MEDS: POTASSIUM CHLORIDE 20 MEQ TABCR PO SCH ×2 (08:52→21:36)
[2017-03-31] MEDS: LACTOBACILLUS ACIDOPHILUS 1 GM PACK PO SCH ×3 (08:52→17:13)
[2017-03-31] MEDS: DOXYCYCLINE HYCLATE 100 MG CAP PO SCH ×2 (08:53→21:35)
[2017-03-31] MEDS: FUROSEMIDE 40 MG TAB PO SCH (08:53)
[2017-03-31] MEDS: MAGNESIUM OXIDE 400 MG TAB PO SCH (08:53)
[2017-03-31] MEDS: HEPARIN SOD 5000 UNIT/0.5 ML CARP SQ SCH (08:58)
[2017-03-31] MEDS ORDERED: NURSING VERBAL MED ORDER ONE (09:45)
[2017-03-31] MEDS: ESCITALOPRAM OXALATE 10 MG TAB PO SCH (09:47)
--- NOTE | 2017-03-31 10:30 | Hospitalist Progress Note ---
Hospitalist Progress Note Date of Service Mar 31, 2017. Subjective Pt evaluation today including: conversation w/ patient, physical exam, chart review, review of studies, review of inpatient medication list Patient seen and evaluated. No acute events overnight. Remains disoriented which is baseline. Gay with more bloody urine than yesterday. Will hold Heparin SC x 24 hours and monitor. Continues to have good UO. Bilateral legs much improved with minimal erythema and edema improving. Awaiting appeal process. Discussed with son Nickolas yesterday who was in to sign papers. Patient continues to be intermittently non-compliant with tasks - O2, wound care, etc. Constitutional: No fever, No chills Respiratory: No shortness of breath Cardiovascular: No chest pain Abdomen: No pain, No nausea, No vomiting Medications Current Inpatient Medications Medications (Trade) Dose Ordered Sig/Ryan Route Start Time Stop Time Status Last Admin Dose Admin Heparin Sodium (Porcine) (Heparin Sq 5000 Unit/0.5ml) 5,000 unit Q12 SQ 03/21/17 21:00 04/20/17 20:59 Future hold 03/31/17 08:58 5,000 UNIT Acetaminophen (Tylenol Tab) 650 mg Q4H PRN PO 03/21/17 16:30 04/20/17 16:29 Al Hydrox/Mg Hydrox/Simethicone (Maalox Max Susp) 15 ml Q4H PRN PO 03/21/17 16:30 04/20/17 16:29 Magnesium Hydroxide (Milk Of Magnesia Susp) 30 ml Q12H PRN PO 03/21/17 16:30 04/20/17 16:29 Ondansetron HCl (Zofran Inj) 4 mg Q6H PRN IV 03/21/17 16:30 04/20/17 16:29 Polyethylene (Miralax Powder Packet) 17 gm DAILY PRN PO 03/21/17 16:30 04/20/17 16:29 Donepezil HCl (Aricept Tab) 10 mg DAILY PO 03/22/17 09:00 04/21/17 08:59 03/31/17 08:52 10 MG Escitalopram Oxalate (Lexapro Tab) 10 mg DAILY PO 03/22/17 09:00 04/21/17 08:59 03/31/17 09:47 10 MG Multi-Ingredient Ointment (Eucerin Unscented Cr) 1 appln BID EXT 8/30/17 21:00 04/22/17 20:59 03/31/17 08:49 1 APPLN Lactobacillus Acidophilus (Lactinex Granules Pack) 1 gm TIDM PO 03/23/17 17:00 04/22/17 16:59 03/31/17 08:52 1 GM Polyethylene (Miralax Powder Packet) 17 gm DAILY PO 03/24/17 09:00 04/23/17 08:59 03/30/17 08:44 17 GM Ketoconazole (Nizoral 2% Crm) 1 appln BID EXT 03/23/17 21:00 04/02/17 20:59 03/31/17 08:49 1 APPLN Magnesium Oxide (Mag-Ox Tab) 400 mg QAM PO 03/24/17 19:00 04/23/17 18:59 03/31/17 08:53 400 MG Potassium Chloride (Klor-Con Tab) 20 meq BID PO 03/26/17 15:00 04/25/17 14:59 03/31/17 08:52 20 MEQ Senna/Docusate Sodium (Senokot S Tab) 1 tab BID PO 03/27/17 09:00 04/26/17 08:59 03/30/17 20:42 1 TAB Furosemide (Lasix Tab) 40 mg QAM PO 03/30/17 09:00 04/29/17 08:59 03/31/17 08:53 40 MG Doxycycline Hyclate (Vibramycin Cap) 100 mg BID PO 03/30/17 21:00 04/09/17 20:59 03/31/17 08:53 100 MG Cephalexin Monohydrate (Keflex Cap) 500 mg BID PO 03/31/17 09:00 04/10/17 08:59 03/31/17 08:52 500 MG Objective Vital Signs Date Time Temp Pulse Resp B/P (MAP) Pulse Ox O2 Delivery O2 Flow Rate FiO2 03/31/17 08:00 Nasal Cannula 3.0 03/31/17 07:28 36.4 81 20 147/75 (99) 90 3.0 03/31/17 00:00 Nasal Cannula 3.0 03/31/17 00:00 36.4 80 18 142/80 (100) 94 3.0 03/30/17 20:00 Nasal Cannula 3.0 03/30/17 16:15 36.7 80 20 149/79 (102 94 Nasal Cannula 3.0 03/30/17 16:00 Nasal Cannula 3.0 Physical Exam General Appearance: WD/WN, no apparent distress, + thin Eyes: sclerae normal ENT: hearing grossly normal Neck: supple, no JVD, trachea midline Respiratory/Chest: lungs clear, no respiratory distress, no accessory muscle use, + decreased breath sounds (diffuse) Cardiovascular: regular rate, rhythm, no gallop, no murmur Abdomen: normal bowel sounds, non tender, soft Extremities: + swelling (b/l 1+ pitting edema) Neurologic/Psychiatric: alert, + disoriented Skin: normal color, warm/dry Assessment and Plan Ms. Bradley is an 81 y/o female with PMHx of Senile Dementia of Alzheimer's Type and Anxiety who presents to the ED due to fever and AMS starting this AM. Placed on Keflex x 2 courses and Bactrim x 1 course for bilateral lower extremity cellulitis. Metabolic Encephalopathy: RESOLVED Bilateral Lower Extremity Cellulitis and Possible Tinea Pedis: IMPROVING - On antibiotics since 03/09 with noted improvement but not at baseline with noted increased confusion from baseline - R worse than L - Doxycycline and Ceftin - DAY #11 total antibiotic coverage - Topical Ketoconazole for tinea pedis - Lasix 40 mg daily - monitor UO - possibly give one more dose tomorrow AM and D /C Hyponatremia: RESOLVED - Continue to monitor SDAT: BASELINE - Donepezil 10 mg daily and Lexapro 10 mg daily (increased on 03/15 from 5 mg) DVT Prophylaxis: Heparin 5000 units SC BID -- Will hold x 24 hrs for hematuria from traumatic Gay insertion Code Status: DO NOT RESUSCITATE Disposition: - Lives alone with caregivers and daughter and son visits - is ambulatory without assistive devices - Awaiting insurance appeal process for [facility] Continued [facility] stay due to: home environment unsafe for pt Discharge planning: [facility] facility
[2017-03-31 15:18] VITALS: BP 126/65; PULSE 83; TEMP 36.9; O2SAT 90
[2017-04-01] VITALS: BP 118/76; PULSE 82; TEMP 37; O2SAT 94
[2017-04-01 07:19] LABS: CALCIUM 8.4 mg/dl (8.5-10.1); CREATININE 0.61 mg/dl (0.60-1.20); POTASSIUM 3.7 mmol/L (3.5-5.1)
[2017-04-01 07:50] VITALS: BP 124/73; PULSE 82; TEMP 36.6; O2SAT 95
[2017-04-01 08:15] VITALS: BP 120/70; PULSE 72; TEMP 36.7; O2SAT 96
[2017-04-01] MEDS: DOCUSATE SODIUM/SENNA 50/8.6MG TAB PO SCH (08:22)
[2017-04-01] MEDS: POLYETHYLENE (MIRALAX) 17 GM PACK PO SCH (08:22)
[2017-04-01] MEDS: EUCERIN CR 120 GM JAR EXT SCH (08:24)
[2017-04-01] MEDS: LACTOBACILLUS ACIDOPHILUS 1 GM PACK PO SCH ×3 (08:24→16:51)
[2017-04-01] MEDS: KETOCONAZOLE 2% CR 15 GM TUBE EXT SCH (08:24)
[2017-04-01] MEDS: DONEPEZIL HCL 10 MG TAB PO SCH (08:24)
[2017-04-01] MEDS: POTASSIUM CHLORIDE 20 MEQ TABCR PO SCH (08:24)
[2017-04-01] MEDS: CEPHALEXIN MONOHYDRATE 500 MG CAP PO SCH (08:24)
[2017-04-01] MEDS: FUROSEMIDE 40 MG TAB PO SCH (08:25)
[2017-04-01] MEDS: DOXYCYCLINE HYCLATE 100 MG CAP PO SCH (08:25)
[2017-04-01] MEDS: ESCITALOPRAM OXALATE 10 MG TAB PO SCH (08:25)
[2017-04-01] MEDS: MAGNESIUM OXIDE 400 MG TAB PO SCH (08:25)
--- NOTE | 2017-04-01 13:42 | Hospitalist Progress Note ---
Hospitalist Progress Note Date of Service Apr 01, 2017. Subjective Pt evaluation today including: conversation w/ patient, physical exam, chart review, lab review, review of studies, review of inpatient medication list Voiding: stinson catheter in place Patient seen and evaluated. No acute events overnight. Remains optimal for D/C to SNF Is unsafe to return home without 24/7 supervision. Remains only oriented to self. Speech remains clear but thought process is sporadic. Was more cooperative with morning hygiene today. Bilateral legs without erythema and minimal to know edema. Awaiting appeal process. Verbalizes no complaints. Eating well without difficulty. Respiratory: No shortness of breath Cardiovascular: No chest pain Abdomen: No pain, No nausea, No vomiting Musculoskeletal: No joint pain, No calf pain Medications Current Inpatient Medications Medications (Trade) Dose Ordered Sig/Ryan Route Start Time Stop Time Status Last Admin Dose Admin Heparin Sodium (Porcine) (Heparin Sq 5000 Unit/0.5ml) 5,000 unit Q12 SQ 03/21/17 21:00 04/20/17 20:59 Future hold 03/31/17 08:58 5,000 UNIT Acetaminophen (Tylenol Tab) 650 mg Q4H PRN PO 03/21/17 16:30 04/20/17 16:29 Al Hydrox/Mg Hydrox/Simethicone (Maalox Max Susp) 15 ml Q4H PRN PO 03/21/17 16:30 04/20/17 16:29 Magnesium Hydroxide (Milk Of Magnesia Susp) 30 ml Q12H PRN PO 03/21/17 16:30 04/20/17 16:29 Ondansetron HCl (Zofran Inj) 4 mg Q6H PRN IV 03/21/17 16:30 04/20/17 16:29 Polyethylene (Miralax Powder Packet) 17 gm DAILY PRN PO 03/21/17 16:30 04/20/17 16:29 Donepezil HCl (Aricept Tab) 10 mg DAILY PO 03/22/17 09:00 04/21/17 08:59 04/01/17 08:24 10 MG Escitalopram Oxalate (Lexapro Tab) 10 mg DAILY PO 03/22/17 09:00 04/21/17 08:59 04/01/17 08:25 10 MG Multi-Ingredient Ointment (Eucerin Unscented Cr) 1 appln BID EXT 03/23/17 21:00 04/22/17 20:59 04/01/17 08:24 1 APPLN Lactobacillus Acidophilus (Lactinex Granules Pack) 1 gm TIDM PO 03/23/17 17:00 04/22/17 16:59 04/01/17 11:53 1 GM Polyethylene (Miralax Powder Packet) 17 gm DAILY PO 03/24/17 09:00 04/23/17 08:59 03/30/17 08:44 17 GM Ketoconazole (Nizoral 2% Crm) 1 appln BID EXT 03/23/17 21:00 04/02/17 20:59 04/01/17 08:24 1 APPLN Magnesium Oxide (Mag-Ox Tab) 400 mg QAM PO 03/24/17 19:00 04/23/17 18:59 04/01/17 08:25 400 MG Potassium Chloride (Klor-Con Tab) 20 meq BID PO 03/26/17 15:00 04/25/17 14:59 04/01/17 08:24 20 MEQ Senna/Docusate Sodium (Senokot S Tab) 1 tab BID PO 03/27/17 09:00 04/26/17 08:59 03/31/17 21:35 1 TAB Furosemide (Lasix Tab) 40 mg QAM PO 03/30/17 09:00 04/29/17 08:59 04/01/17 08:25 40 MG Doxycycline Hyclate (Vibramycin Cap) 100 mg BID PO 03/30/17 21:00 04/09/17 20:59 04/01/17 08:25 100 MG Cephalexin Monohydrate (Keflex Cap) 500 mg BID PO 03/31/17 09:00 04/10/17 08:59 04/01/17 08:24 500 MG Objective Vital Signs Date Time Temp Pulse Resp B/P (MAP) Pulse Ox O2 Delivery O2 Flow Rate FiO2 04/01/17 08:00 Nasal Cannula 3.0 04/01/17 07:50 36.6 82 16 124/73 (90) 95 Nasal Cannula 3.0 04/01/17 00:00 37.0 82 18 118/76 (90) 94 2.0 04/01/17 00:00 Nasal Cannula 3.0 03/31/17 16:00 Nasal Cannula 3.0 03/31/17 15:18 36.9 83 20 126/65 (85) 90 Room Air Physical Exam General Appearance: no apparent distress, + thin Eyes: sclerae normal ENT: hearing grossly normal Neck: supple, no JVD, trachea midline Respiratory/Chest: lungs clear, no respiratory distress, no accessory muscle use, + decreased breath sounds (diffuse) Cardiovascular: regular rate, rhythm, no gallop, no murmur Abdomen: normal bowel sounds, non tender, soft Extremities: no calf tenderness, + pertinent finding (erythema resolved and trace to no lower extremity edema) Neurologic/Psychiatric: alert, + disoriented Skin: normal color, warm/dry Laboratory Results Last 24 Hours Test 04/01/17 06:27 Sodium Level 142 mmol/L Potassium Level 3.7 mmol/L Chloride Level 102 mmol/L Carbon Dioxide Level 35 mmol/L Anion Gap 5.0 mmol/L Blood Urea Nitrogen 11 mg/dl Creatinine 0.61 mg/dl Est Creatinine Clear Calc Drug Dose 50.6 ml/min Estimated GFR () 97.8 Estimated GFR (Non- 84.4 BUN/Creatinine Ratio 18.0 Random Glucose 86 mg/dl Calcium Level 8.4 mg/dl Assessment and Plan Ms. Bradley is an 81 y/o female with PMHx of Senile Dementia of Alzheimer's Type and Anxiety who presents to the ED due to fever and AMS starting this AM. Placed on Keflex x 2 courses and Bactrim x 1 course for bilateral lower extremity cellulitis. Metabolic Encephalopathy Superimposed on Dementia: RESOLVED Bilateral Lower Extremity Cellulitis and Possible Tinea Pedis: IMPROVING - On antibiotics since 03/09 with noted improvement but not at baseline with noted increased confusion from baseline - R worse than L - Doxycycline and Ceftin - DAY #12 total antibiotic coverage - Topical Ketoconazole for tinea pedis Hyponatremia: RESOLVED - Continue to monitor SDAT: BASELINE - Donepezil 10 mg daily and Lexapro 10 mg daily (increased on 03/15 from 5 mg) DVT Prophylaxis: Will hold Heparin at this time in setting of hematuria Code Status: DO NOT RESUSCITATE Disposition: - Lives alone with caregivers and daughter and son visits - is ambulatory without assistive devices - Awaiting insurance appeal process for [facility] - may be 72 hr process - Will likely leave Stinson in even at D/C to allow buttock wound to heal Continued [facility] stay due to: home environment unsafe for pt Discharge planning: intermediate facility
[2017-04-01 15:14] VITALS: BP 132/79; PULSE 87; TEMP 36.5; O2SAT 92
[2017-04-01] MEDS ORDERED: LCTXP PO (15:24)
[2017-04-01] MEDS ORDERED: DXY100 PO (15:24)
[2017-04-01] MEDS ORDERED: KFL500 PO (15:24)
[2017-04-01] MEDS ORDERED: ECRCR EXT (15:24)
[2017-04-01] MEDS ORDERED: MRLP17 PO (15:24)
--- NOTE | 2017-04-01 15:35 | Discharge Instructions ---
Discharge Instructions Date of Service Apr 01, 2017. Admission Reason for Admission: Cellulitis, Leg Discharge Discharge Diagnosis / Problem: Bilateral Lower Extremity Cellulitis Discharge Goals Goal(s): Decrease discomfort, Improve function, Increase independence Activity Recommendations Activity Level: Assistance Required Therapies: Physical Therapy, Occupational Therapy . Additional Information Patient informed of condition: Yes Advance Directives: Yes DNR: Yes Level of Care: Skilled Communicable Disease: No Prognosis: Stable Instructions / Follow-Up Instructions / Follow-Up Ms. Bradley is an 81 y/o female with PMHx of Senile Dementia of Alzheimer's Type and Anxiety who presents to the ED due to fever and AMS starting this AM. Placed on Keflex x 2 courses and Bactrim x 1 course for bilateral lower extremity cellulitis. Metabolic Encephalopathy Superimposed on Dementia: RESOLVED - At baseline mentation - only oriented to self - Speech is clear but has tangential thoughts. Remains mostly pleasant but can get easy agitation with bathing and interventions Bilateral Lower Extremity Cellulitis and Possible Tinea Pedis: IMPROVING - Doxycycline and Ceftin - DAY #07/07 total antibiotic coverage -- Will need doses this evening then continue twice a day starting on 04/02 - Topical Ketoconazole for tinea pedis Multiple Pressure Ulcers: - Will leave Gay catheter in place x 2 weeks to allow for buttock wound healing - Is having some hematuria S/P insertion while on Heparin DVT Prophylaxis - improving Hyponatremia: RESOLVED SDAT: BASELINE - Donepezil 10 mg daily and Lexapro 10 mg daily (increased on 03/15 from 5 mg) Code Status: DO NOT RESUSCITATE Disposition: - Recommend ongoing wound care for pressure ulcers - Was having some hypokalemia and hypomagnesemia with diuresis with Lasix but has stabilized - recommend BMP in 2-3 days -- May need daily supplementation if necessary - Lasix has been D/C'd in- hospital -- May have some underlying diastolic CHF - last echo without mention of this and EF is normal - Did utilize supplemental O2 (patient is very non-compliant with this) did have intermittent hypoxic episodes but currently saturations 92% on RA and patient asymptomatic and no distress Current Hospital Diet Patient's current hospital diet: Regular Diet Discharge Diet Recommended Diet: Regular Diet Pending Studies Studies pending at discharge: no Medical Emergencies . Who to Call and When: Medical Emergencies: If at any time you feel your situation is an emergency, please call 911 immediately. . Non-Emergent Contact Non-Emergency issues call your: Primary Care Provider Call Non-Emergent contact if: you have a fever, your pain is concerning you, you have any medication questions . . "Provider Documentation" section prepared by Renetta Ashraf. . Core Measure Problem Core Measures: None
--- NOTE | 2017-04-01 15:49 | Discharge Summary ---
Discharge Summary Date of Service Apr 01, 2017. Discharge Summary Admission Date: Mar 21, 2017 at 16:22 Discharge Date: Apr 01, 2017 Discharge Disposition: snf facility Principal Diagnosis: Bilateral Lower Extremity Cellulitis Problems/Secondary Diagnoses: 1. Senile Dementia of Alzheimer's Type 2. Anxiety Immunizations: Have You Had Influenza Vaccine: Yes Influenza Vaccine Date: Apr 23, 2010 History of Tetanus Vaccine?: Unknown History of Pneumococcal: Yes Pneumococcal Date: Apr 23, 2010 History of Hepatitis B Vaccine: No Procedures: ULTRASOUND VENOUS DOPPLER LWR EXT BILA FINDINGS: Real-time and color flow Doppler imaging were performed. Flow was seen within the femoral, popliteal and calf veins with no intraluminal thrombus demonstrated. The saphenous vein is patent. Note, the study was difficult from a technical standpoint given limited patient cooperation. IMPRESSION: No evidence of lower extremity DVT. CT HEAD WITHOUT CONTRAST (CT) FINDINGS: No intra or extra-axial mass lesions are visualized. There is no CT evidence of acute cortical infarction. There is no evidence of midline shift. There is no acute hemorrhage. No calvarial fractures are visualized. There are patchy white matter hypodensities likely on a small vessel basis. 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 There is mild interstitial thickening. There is no lobar consolidation. There are no significant pleural effusions.[ IMPRESSION: Mild interstitial thickening a finding which may be accentuated by suboptimal inspiration. No evidence of lobar consolidation Consultations: 1. PT/OT Medication Reconciliation New Medications: Cephalexin Monohydrate (Cephalexin) 500 Mg Cap 500 MG PO BID, #5 CAP Take one tablet on 04/01 then resume twice a day on 04/02 Doxycycline Hyclate (Doxycycline Hyclate) 100 Mg Cap 100 MG PO BID, #5 CAP Take one tablet 04/01 then resume 04/02 Eucerin (Hydrocerin) 360 Appln/120 Gm Cr 1 APPLN EXT BID for 14 Days Ketoconazole (Ketoconazole) 45 Appln/15 Gm Cr 1 APPLN EXT BID for 60 Days, #120 GM 3 Refills Lactobacillus Acidophilus (Lactinex Granules) 1 Gm Pack 1 GM PO TIDM for 7 Days, #21 PKT Magnesium Oxide (Magnesium-Oxide) 400 Mg Tab 400 MG PO QAM for 30 Days, #30 TAB Polyethylene (Miralax) 17 Gm Pow 17 GM PO DAILY PRN for Constipation for 30 Days, #30 PKT Continued Medications: Donepezil Hydrochloride (Aricept) 10 Mg Tab 10 MG PO DAILY Escitalopram Oxalate (Lexapro) 10 Mg Tab 10 MG PO DAILY Discontinued Medications: Cephalexin Monohydrate (Keflex) Unknown Strength Cap 1 CAP PO TID Sulfa/Trimethoprim (Bactrim Ds 800MG/160MG) Tab 1 TAB PO BID Discharge Exam REVIEW OF SYSTEMS: Respiratory: No shortness of breath Cardiovascular: No chest pain Abdomen: No pain, No nausea, No vomiting Musculoskeletal: No joint pain, No calf pain PHYSICAL EXAMINATION: General Appearance: no apparent distress, + thin Eyes: sclerae normal ENT: hearing grossly normal Neck: supple, no JVD, trachea midline Respiratory/Chest: lungs clear, no respiratory distress, no accessory muscle use, + decreased breath sounds (diffuse) Cardiovascular: regular rate, rhythm, no gallop, no murmur Abdomen: normal bowel sounds, non tender, soft Extremities: no calf tenderness, + pertinent finding (erythema resolved and trace to no lower extremity edema) Neurologic/Psychiatric: alert, + disoriented Skin: normal color, warm/dry Hospital Course ADMISSION: Ms. Bradley is an 81 y/o female with PMHx of Senile Dementia of Alzheimer's Type and Anxiety who presents to the ED due to fever and AMS starting this AM. History obtained from the daughter as patient is currently asleep after receiving Ativan. Patient is presented to PCP on 03/09 for bilateral lower extremity edema and erythema and was placed on Keflex. On follow-up on 03/15, she was started on Bactrim and another course of Keflex initiated. Daughter reports she is a couple days shy of completing this course. Daughter feels that her lower extremities are improving. She has open wounds on both feet that are healing. Her right lower extremity is more edematous compared to the left. Daughter states that the patient was feeling well prior to this morning. Daughter noted a fever of 100F and increased confusion from her baseline. Baseline mentation has underlying dementia and agitation. Daughter states patient is ambulatory and able to converse. Noted generalized weakness impacting her baseline ambulation. Daughter denies focal neurological deficits or slurred speech. Of note, daughter states on 03/15 patient's Lexapro was increased from 5 mg to 10 mg but reports she tolerated this increase well. In the ED, she is afebrile and without leukocytosis. Lactic acid 1.18. Hyponatremic at 130. Head CT negative for acute findings. CXR without lobar consolidation. UA is unremarkable. Bilateral Dopplers without evidence of DVT. Patient was initially mildly hypertensive but currently hypotensive. She will be admitted to telemetry for further evaluation and care. HOSPITAL COURSE: Ms. Bradley was admitted for Bilateral Lower Extremity Cellulitis with failed outpatient treatment. She was also noted to be more confused and presented with AMS. She was treated with Ceftriaxone 2 g IV daily and Vancomycin with oral conversion to Doxycycline 100 mg BID and Keflex 500 mg BID to finish a 14 day course. Ketoconazole topically to the feet was instituted as well. She was diuresed with daily oral Lasix x 3 days with resolution of extremity edema and erythema. She has multiple wounds/pressure ulcers and was evaluated by wound care when she would cooperate. A Gay catheter was placed due to Lasix administration and allowing the buttocks wounds to be free from urinary contamination. She did have some hematuria from traumatic placement in setting on concurrent Heparin DVT prophylaxis but is improving. Plan to leave Gay x 2 weeks to allow wound healing. Patient is alert and oriented to self. Speech is clear but thought processes are tangential. She is optimal for D/C to SNF. Total Time Spent: Greater than 30 minutes This includes examination of the patient, discharge planning, medication reconciliation, and communication with other providers. Discharge Instructions Please refer to the electronic Patient Visit Report (Discharge Instructions) for additional information. Additional Copies To Neftali Hammond M.D.
[2017-04-01 17:10] VITALS: BP 132/79; PULSE 87; TEMP 36.5; O2SAT 92
== END 2017-04-01 19:15 | DRG 602 ==
LOC: EDBD 13:10 → C.EDB 13:11 → C.MED 16:22 → CANRESERV 16:50 → ENRESERV 16:50
PROVIDERS: ADMIT Hospitalist; ATTEND Internal Medicine
DX: L03.116 Cellulitis of left lower limb (principal); G93.41 Metabolic encephalopathy; E87.1 Hypo-osmolality and hyponatremia; L03.115 Cellulitis of right lower limb; F41.9 Anxiety disorder, unspecified; G30.1 Alzheimer's disease with late onset; F02.80 Dementia in other diseases classified elsewhere, unspecified severity, without behavioral disturbance, psychotic disturbance, mood disturbance, and anxiety; L89.622 Pressure ulcer of left heel, stage 2; L89.310 Pressure ulcer of right buttock, unstageable; E86.0 Dehydration; B35.3 Tinea pedis; Z66 Do not resuscitate; R63.8 Other symptoms and signs concerning food and fluid intake; E87.70 Fluid overload, unspecified; R31.9 Hematuria, unspecified; E87.6 Hypokalemia; I45.9 Conduction disorder, unspecified; R03.1 Nonspecific low blood-pressure reading; Z79.2 Long term (current) use of antibiotics; Z79.899 Other long term (current) drug therapy

== ENCOUNTER → 2017-04-08 | Outpatient (CLI) | payer OTHER ==
[~2017-04-08] MED LIST changes: -ASPEC81 PO; -CHOLTAB3 PO; +DONE10TA12 PO; +DXY100 PO; +ECRCR EXT; +ESCI1TAB9 PO; -FSMD/70 PO; +KFL500 PO; +LCTXP PO; +MGNO400 PO; +MRLP17 PO; +NZRCR EXT; -SIMV10TA2 PO
== END ==
LOC: C.LABCC 07:51
PROVIDERS: ATTEND Internal Medicine
DX: T14.8 Other injury of unspecified body region (principal); X58.XXXA Exposure to other specified factors, initial encounter

== ENCOUNTER → 2017-04-11 | Outpatient (CLI) | payer OTHER ==
[2017-04-11 10:48] LABS: BASO % 2.8 %; BASO ABS # 0.11 K/uL (0-0.2); COMPLETE YES; HEMATOCRIT 33.7 % (37-47); IG% 0.3 %; LYMPH % 21.4 %; LYMPH ABS # 0.85 K/uL (1.2-3.4); MEAN CELL VOLUME 81.8 fL (80-100); MEAN CORPUSCULAR HEMOGLOBIN 25.7 pg (25-34); MEAN CORPUSCULAR HGB CONC 31.5 g/dl (32-36); MEAN PLATELET VOLUME 9.2 fL (7.4-10.4); MONO % 16.9 %; NEUT % 58.6 %; PLATELET COUNT 297 K/uL (130-400); RED BLOOD COUNT 4.12 M/uL (4.2-5.4); WHITE BLOOD COUNT 3.97 K/uL (4.8-10.8)
[2017-04-11 11:02] LABS: ALT/SGPT 11 U/L (12-78); AST/SGOT 14 U/L (15-37); BLOOD UREA NITROGEN 15 mg/dl (7-18); BUN/CREATININE RATIO 29.4 (10-20); CALCIUM 8.8 mg/dl (8.5-10.1); CARBON DIOXIDE 28 mmol/L (21-32); CHLORIDE 101 mmol/L (98-107); CREATININE 0.51 mg/dl (0.60-1.20); GLUCOSE 78 mg/dl (70-99); POTASSIUM 3.7 mmol/L (3.5-5.1); SODIUM 136 mmol/L (136-145)
[2017-04-11 11:04] LABS: ALB/GLOB RATIO 0.6 (0.9-2); ALKALINE PHOSPHATASE 70 U/L (45-117)
== END | disposition home or self-care (01) ==
LOC: C.LABCC 09:59
PROVIDERS: ATTEND Internal Medicine
DX: D64.9 Anemia, unspecified (principal); E88.09 Other disorders of plasma-protein metabolism, not elsewhere classified

== ENCOUNTER → 2017-04-25 | Outpatient (CLI) | payer OTHER ==
[2017-04-25 17:31] LABS: URINE APPEARANCE TURBID (CLEAR); URINE BILIRUBIN NEG (NEG); URINE COLOR DK YELLOW; URINE EPITHELIAL CELL AUTO >30 /lpf (0-5); URINE NITRITE POS (NEG); URINE SPECIFIC GRAVITY 1.016 (1.000-1.030); UROBILINOGEN NEG (NEG); ZZURINE CULT IF INDIC CATH YES
[2017-04-25 17:37] LABS: MANUAL MICROSCOPIC REQUIRED? NO; REVIEW REQ? YES
== END ==
LOC: C.LABCC 16:32
PROVIDERS: ATTEND Internal Medicine
DX: R33.9 Retention of urine, unspecified (principal)

== ENCOUNTER → 2017-05-11 | Outpatient (CLI) | payer OTHER ==
[2017-05-11 13:44] LABS: URINE APPEARANCE TURBID (CLEAR); URINE BILIRUBIN NEG (NEG); URINE COLOR DK YELLOW; URINE NITRITE NEG (NEG); URINE PH 6.5 (4.5-7.5); URINE SPECIFIC GRAVITY 1.026 (1.000-1.030); UROBILINOGEN NEG (NEG); ZZURINE CULT IF INDIC CATH YES
[2017-05-11 13:52] LABS: MANUAL MICROSCOPIC REQUIRED? NO; REVIEW REQ? YES
--- NOTE | 2017-05-15 21:09 | CODING QUERY NO DIAGNOSIS ---
: 1935 TREATMENT RENDERED WITHOUT A DIAGNOSIS To promote full compliance with coding requirements relating to patient care, physician participation is requested in all cases of veterinary attendant uncertainty. Please assist us with providing a diagnosis/symptom for the test(s) below: A diagnosis/symptom was not documented on your Order. A valid diagnosis/symptom is required to bill all insurances. Please remember that we are unable to code a diagnosis of rule out, probable, possible, questionable, or suspected. Tests that require a diagnosis: DOS: 05/11/17 * URINE CULTURE CATH DIAGNOSIS: * UA CATH CULTURE DIAGNOSIS: Provider Signature: Date: Thank you Lovely Mensah [facility] Information Management Once completed, please kindly fax back to [phone] For questions please call [phone]
== END ==
LOC: C.LABCC 12:05
PROVIDERS: ATTEND Internal Medicine
DX: R33.9 Retention of urine, unspecified (principal); N39.0 Urinary tract infection, site not specified

== ENCOUNTER → 2017-05-13 | Outpatient (CLI) | payer OTHER | LOC: C.LABCC 09:02 | PROVIDERS: ATTEND Internal Medicine | DX: T14.8XXA Other injury of unspecified body region, initial encounter (principal); X58.XXXA Exposure to other specified factors, initial encounter ==

== ENCOUNTER → 2017-06-06 | Outpatient (CLI) | payer OTHER ==
[2017-06-06 09:04] LABS: BASO % 0.9 %; BASO ABS # 0.08 K/uL (0-0.2); COMPLETE YES; EOS % 2.4 %; HEMATOCRIT 32.2 % (37-47); IG% 0.3 %; LYMPH % 18.6 %; LYMPH ABS # 1.69 K/uL (1.2-3.4); MEAN CELL VOLUME 81.3 fL (80-100); NEUT % 68.8 %; PLATELET COUNT 474 K/uL (130-400); RED BLOOD COUNT 3.96 M/uL (4.2-5.4); WHITE BLOOD COUNT 9.08 K/uL (4.8-10.8)
== END ==
LOC: C.LABCC 08:21
PROVIDERS: ATTEND Internal Medicine
DX: D64.9 Anemia, unspecified (principal); E55.9 Vitamin D deficiency, unspecified

== ENCOUNTER → 2017-06-21 | Outpatient (CLI) | payer OTHER ==
[2017-06-21 08:16] LABS: BASO % 0.3 %; BASO ABS # 0.04 K/uL (0-0.2); COMPLETE YES; HEMATOCRIT 34.2 % (37-47); IG% 0.2 %; LYMPH % 11.7 %; LYMPH ABS # 1.52 K/uL (1.2-3.4); MEAN CELL VOLUME 81.8 fL (80-100); MEAN CORPUSCULAR HEMOGLOBIN 25.8 pg (25-34); MEAN CORPUSCULAR HGB CONC 31.6 g/dl (32-36); MEAN PLATELET VOLUME 9.3 fL (7.4-10.4); NEUT % 75.8 %; PLATELET COUNT 511 K/uL (130-400); RED BLOOD COUNT 4.18 M/uL (4.2-5.4); WHITE BLOOD COUNT 13.02 K/uL (4.8-10.8)
--- NOTE | 2017-06-27 10:44 | CODING QUERY MEDICAL NECESSITY ---
SUPPORTING DIAGNOSIS NEEDED Dr. Carrera, A supporting diagnosis is required for the test/procedure performed on this patient in order for us to be reimbursed by the patient's insurance. Please provide a supporting diagnosis for the following test/procedure listed below next to the test name along with your signature. *If there is no additional diagnosis for this patient that would support the following test/procedure please document that below next to the test/procedure. Test(s)/Procedure(s) that require a supporting diagnosis: * ([id number]) B12 VITAMIN LEVEL DIAGNOSIS: * ([id number]) FOLATE LEVEL DIAGNOSIS: DATE OF SERVICE: 06/21/17 Provider Signature: Date: Thank you Dorian Modi [facility] Information Management Once completed, please kindly fax back to [phone] For questions please call [phone]
== END ==
LOC: C.LABCC 07:55
PROVIDERS: ATTEND Internal Medicine
DX: D64.9 Anemia, unspecified (principal); D47.3 Essential (hemorrhagic) thrombocythemia

== ENCOUNTER → 2017-09-07 | Outpatient (CLI) | payer OTHER | LOC: C.LABCC 09:40 | PROVIDERS: ATTEND Internal Medicine | DX: E55.9 Vitamin D deficiency, unspecified (principal) ==

== ENCOUNTER → 2017-10-22 | Outpatient (CLI) | payer OTHER ==
--- NOTE | 2017-11-14 06:44 | CODING QUERY NO DIAGNOSIS ---
TREATMENT RENDERED WITHOUT A DIAGNOSIS To promote full compliance with coding requirements relating to patient care, physician participation is requested in all cases of inside phone sales uncertainty. Please assist us with providing a diagnosis/symptom for the test(s) below: A diagnosis/symptom was not documented on your Order. A valid diagnosis/symptom is required to bill all insurances. Please remember that we are unable to code a diagnosis of rule out, probable, possible, questionable, or suspected. Tests that require a diagnosis: DOS: 10/22/17 * UA CATH DIAGNOSIS: * URINE CULTURE CATH DIAGNOSIS: Provider Signature: Date: Thank you Chula Taylor [place] Information Management Once completed, please kindly fax back to [phone] For questions please call [phone]
== END ==
LOC: C.LABCC 09:59
PROVIDERS: ATTEND Internal Medicine
DX: R30.0 Dysuria (principal); R35.0 Frequency of micturition

== ENCOUNTER → 2017-10-25 | Outpatient (CLI) | payer OTHER | LOC: C.LABCC 16:45 | PROVIDERS: ATTEND Internal Medicine | DX: R30.0 Dysuria (principal); R45.1 Restlessness and agitation ==

== ENCOUNTER → 2017-12-14 | Outpatient (CLI) | payer OTHER ==
[2017-12-14 08:24] LABS: HEMATOCRIT 34.9 % (37-47); HEMOGLOBIN 11.4 g/dL (12.0-16.0); MEAN CELL VOLUME 84.5 fL (80-100); MEAN CORPUSCULAR HEMOGLOBIN 27.6 pg (25-34); MEAN CORPUSCULAR HGB CONC 32.7 g/dl (32-36); MEAN PLATELET VOLUME 9.7 fL (7.4-10.4); PLATELET COUNT 377 K/uL (130-400); RED CELL DISTRIBUTION WIDTH CV 16.3 % (11.5-14.5); RED CELL DISTRIBUTION WIDTH SD 50.5 fL (36.4-46.3); WHITE BLOOD COUNT 6.92 K/uL (4.8-10.8)
[2017-12-14 08:43] LABS: BLOOD UREA NITROGEN 41 mg/dl (7-18); CARBON DIOXIDE 29 mmol/L (21-32); CREATININE 0.63 mg/dl (0.60-1.20); GLUCOSE 78 mg/dl (70-99); POTASSIUM 3.8 mmol/L (3.5-5.1); SODIUM 139 mmol/L (136-145)
== END ==
LOC: C.LABCC 08:04
PROVIDERS: ATTEND Internal Medicine
DX: R19.5 Other fecal abnormalities (principal); R63.4 Abnormal weight loss; D64.9 Anemia, unspecified; E83.42 Hypomagnesemia